=== PATIENT | male | born 1935 | race Caucasian/White ===

== ENCOUNTER → 2016-09-18 | Outpatient (CLI) | payer MEDICARE ==
[2016-09-18 19:19] LABS: ANION GAP 7 MEQ/L (8-16); BLOOD UREA NITROGEN 32 MG/DL (7-18); CALCIUM LEVEL 9.2 MG/DL (8.8-10.2); CARBON DIOXIDE LEVEL 27 MEQ/L (21-32); CHLORIDE LEVEL 106 MEQ/L (98-107); CREATININE FOR GFR 1.45 MG/DL (0.70-1.30); GLOMERULAR FILTRATION RATE 50.1 (>42); GLUCOSE, FASTING 107 MG/DL (83-110); SODIUM LEVEL 140 MEQ/L (136-145)
[2016-09-18 19:25] LABS: MEAN CORPUSCULAR HEMOGLOBIN 30.6 pg (27.0-33.0); MEAN CORPUSCULAR HGB CONC 33.3 g/dl (32.0-36.5); MEAN CORPUSCULAR VOLUME 91.9 fl (80.0-96.0); RED CELL DISTRIBUTION WIDTH 12.5 % (11.5-14.5); WHITE BLOOD COUNT 7.1 K/mm3 (4.0-10.0)
[2016-09-18 19:32] LABS: POTASSIUM SERUM 5.6 MEQ/L (3.5-5.1)
== END ==
LOC: M SMT 14:13
PROVIDERS: ATTEND Nurse Practitioner Women's Health
DX: Z08 Encounter for follow-up examination after completed treatment for malignant neoplasm (principal); Z85.46 Personal history of malignant neoplasm of prostate; Z85.51 Personal history of malignant neoplasm of bladder

== ENCOUNTER → 2016-09-26 | Outpatient (CLI) | payer MEDICARE, BC ==
--- NOTE | 2016-09-26 17:30 | REP ---
MR THORACIC SPINE WITHOUT CONTRAST: HISTORY: Radiculopathy. A small central disc protrusion is present at the T7-8 level. There is minimal effacement of the thecal sac without spinal cord compression. The T7 neural foramina are patent. There is no other disc bulge or herniation. The remaining neural foramina are patent. The spinal cord is normal in signal intensity. Normal signal intensity is present in the thoracic vertebral bodies. Anterior osteophytes are present in the mid and lower thoracic spine. IMPRESSION: Small disc protrusion at the T7-8 level without spinal cord compression. Unreviewed
--- NOTE | 2016-09-26 17:36 | REP ---
MRI CERVICAL SPINE WITHOUT CONTRAST: HISTORY: Radiculopathy. A disc bulge is present at the C2-3 level. There is minimal effacement of the thecal sac without spinal cord compression. The C2 neural foramina are patent. A disc bulge is present at the C3-4 level. There is mild effacement of the thecal sac without spinal cord compression. Bilateral uncinate process hypertrophy is present. This produces mild and moderate narrowing of the right and left C3 neural foramina respectively. A disc bulge with associated osteophyte formation is present at the C4-5 level. There is moderate effacement of the thecal sac without spinal cord compression. Bilateral uncinate process and left facet hypertrophy are present. These findings produce moderate narrowing of the C4 neural foramina. A disc bulge with associated osteophyte formation is present at the C5-6 level. There is minimal spinal cord compression. Bilateral uncinate process hypertrophy is present. This produces moderate narrowing of the C5 neural foramina. A disc bulge with associated osteophyte formation is present at the C6-7 level. There is mild effacement of the thecal sac without spinal cord compression. Bilateral uncinate process hypertrophy is present. This produces moderate and mild narrowing of the right and left C6 neural foramina respectively. There is no other disc bulge or herniation. The remaining neural foramina are patent. The spinal cord is normal in signal intensity. The C4-5 through C6-7 intervertebral discs are decreased in height consistent with disc degeneration. Normal signal intensity is present in the cervical vertebral bodies. IMPRESSION: There is cervical spondylosis at the C2-3 through C6-7 levels most significant at the C5-6 level where there is minimal spinal cord compression. Unreviewed
--- NOTE | 2016-09-26 17:54 | REP ---
MR LUMBAR SPINE WITHOUT CONTRAST: HISTORY: Radiculopathy. COMPARISON: 09/08/2008. Decreased signal intensity on T2-weighted images is present in the lumbar intervertebral discs. The discs are decreased in height. These findings are consistent with disc degeneration. There is no disc bulge or herniation at the L1-2 and L2-3 levels. There is hypertrophy of the posterior articulating facets at the L2-3 level. The nerves exit the neural foramina without compression. A diffuse disc bulge is present at the L2-3 level. There is an increase in the amount of epidural fat. There is hypertrophy of the ligamenta flava and posterior articulating facets. These findings produce mild central canal stenosis. The L3 nerves exit the neural foramina without compression. A diffuse disc bulge is present at the L4-5 level. There is an increase in the amount of epidural fat. There is hypertrophy of the ligamenta flava and posterior articulating facets. These findings produce moderate central canal stenosis. The L4 nerves exit the neural foramina without compression. A diffuse disc bulge is present at the L5-S1 level. There is an increase in the amount of epidural fat. There is mild compression of the thecal sac and S1 nerves. There is hypertrophy of the posterior articulating facets. The L5 nerves exit the neural foramina without compression. The conus medullaris is normal in appearance terminating at the level of the T12-L1 intervertebral disc. Normal signal intensity is present in the lumbar vertebral bodies. IMPRESSION: 1. Mild central canal stenosis at the L3-4 level secondary to disc bulge, ligamentous and facet hypertrophy and epidural lipomatosis. 2. Moderate central canal stenosis at the L4-5 level secondary to disc bulge, ligamentous and facet hypertrophy and epidural lipomatosis. 3. Diffuse disc bulge at the L5-S1 level. There is epidural lipomatosis. There is mild compression of the thecal sac and S1 nerves. The canal stenosis is a new finding at the L3-4 level. The canal stenosis has progressed at the L4-5 level. The epidural lipomatosis is a new finding. Unreviewed
== END ==
LOC: M RAD 14:11
PROVIDERS: ATTEND Pain Medicine Interventional Pain Medicine
DX: M51.24 Other intervertebral disc displacement, thoracic region (principal); M43.02 Spondylolysis, cervical region; M51.26 Other intervertebral disc displacement, lumbar region; M48.03 Spinal stenosis, cervicothoracic region; M54.2 Cervicalgia

== ENCOUNTER → 2016-10-02 | Outpatient (CLI) | payer MEDICARE, BC ==
[2016-10-02 17:25] LABS: CREATININE FOR GFR 1.38 MG/DL (0.70-1.30); GLOMERULAR FILTRATION RATE 52.9 (>42)
== END ==
LOC: M LAB 15:40
PROVIDERS: ATTEND Surgery
DX: N28.9 Disorder of kidney and ureter, unspecified (principal)

== ENCOUNTER → 2016-10-06 | Outpatient (CLI) | payer MEDICARE, BC ==
[~2016-10-06] MED LIST: GASTROGRAFIN SOLUTION 30ML (Q9963) As Ordered ONE; ISOVUE-370 76% 100ML VIAL (Q9967) As Ordered ONE
--- NOTE | 2016-10-06 17:03 | REP ---
CT abdomen pelvis multiphasic scanning: Scanning is initially performed without IV contrast through the liver. This is followed by contrast enhanced arterial phase scanning through the liver and is through the symphysis pubis. This is followed by delayed equilibrium phase scanning through the liver. There are no comparison studies. The visualized lung keating are unremarkable. The hepatic parenchyma is homogeneous on all phases of the study. The gallbladder, pancreas and spleen are unremarkable on all phases of the study. The adrenals, kidneys and abdominal aorta are unremarkable on all phases of the study. There is no hydronephrosis. The abdominal aorta is unremarkable. There is no periaortic adenopathy. There is no mesenteric adenopathy. There is no ascites. There is a right lower quadrant colostomy, however, the colon otherwise appears to be intact. There are scattered diverticula throughout the entire colon, however there is no CT evidence of diverticulitis. Pelvis: There is a large right inguinal hernia containing multiple loops of small bowel. There is no bowel obstruction or strangulation. There is no pelvic adenopathy or ascites. There is an object applied to the scan over the surface of the hernia uncertain significance. There are two small densities posteriorly in the right iliac wing, adjacent to the sacroiliac articulation, bone islands versus blastic metastases. No other lytic, blastic or destructive skeletal changes are identified. Impression: No adenopathy or mass. No ascites. Right lower quadrant stoma, likely a colostomy, however the remainder of the colon is intact. Large right inguinal hernia containing multiple bowel loops. There is an object applied to the scan over the hernia of uncertain significance. Two small densities posteriorly in the right iliac wing, bone islands versus blastic metastases. Signed by Nelson Jensen MD 10/06/2016 04:54 P
== END ==
LOC: EDBD → M RAD 14:13 → EDUNIT# 16:30 → MERGE 16:30
PROVIDERS: ATTEND Nurse Practitioner Women's Health
DX: Z08 Encounter for follow-up examination after completed treatment for malignant neoplasm (principal); Z85.51 Personal history of malignant neoplasm of bladder; Z85.46 Personal history of malignant neoplasm of prostate
CPT/HCPCS: 74178; Q9963; Q9967

== ENCOUNTER → 2016-10-22 | Outpatient (CLI) | payer MEDICARE, BC ==
--- NOTE | 2016-10-22 14:48 | REP ---
REASON: History of prostate cancer. COMPARISON: None. Prior CT examination of the abdomen and pelvis obtained 10/06/2016 showed two small focal areas of increased bony density in the right ileum. After the intravenous administration of 21.3 millicuries of technetium 99m MDP a total body bone scan was obtained. Degenerative type uptake is seen in the feet, shoulders, sternoclavicular joints, cervical spine, and minimally in the hips. No abnormal focal areas of increased radionuclide accumulation are present that would be considered consistent with metastatic lesions. IMPRESSION: No scintigraphic evidence of metastatic disease with degenerative type uptake as described above. Signed by Ortega Mccormack DO 10/22/2016 02:59 P
== END ==
LOC: M RAD 09:36
PROVIDERS: ATTEND Urology
DX: Z85.46 Personal history of malignant neoplasm of prostate (principal); Z08 Encounter for follow-up examination after completed treatment for malignant neoplasm
CPT/HCPCS: 78306; A9503

== ENCOUNTER → 2018-08-09 | Outpatient (REF) | payer MEDICARE, BC | LOC: M SMT 17:02 | PROVIDERS: ATTEND Urology | DX: Z85.51 Personal history of malignant neoplasm of bladder (principal) | CPT/HCPCS: 88108; G0463 ==

== ENCOUNTER 2020-06-05 13:42 | Inpatient (IN) | payer MEDICARE, BC ==
[~2020-06-05] VITALS: Ht 185.4 cm; Wt 83.1 kg
[2020-06-05 16:05] VITALS: BP 163/76
[2020-06-05] MEDS ORDERED: MAALOX 30 ML SUSP *UDC PO PRN (18:15)
[2020-06-05] MEDS ORDERED: ACETAMINOPHEN TAB 650MG DOSE (2X325MG) PO PRN (18:15)
[2020-06-05] MEDS ORDERED: MOM 30ML SUSPENSION UDC PO PRN (18:15)
--- NOTE | 2020-06-05 18:17 | HPEPDOC ---
[facility] Medical History & Physical Date of Admission Jun 05, 2020 Date of Service: Jun 05, 2020 History and Physical CHIEF COMPLAINT: Abdominal pain HISTORY OF PRESENT ILLNESS: 83M PMHx CAD, CVA, HTN, and bladder cancer s/p open radical cystoprostatectomy in 2011 was transferred from [facility] to [facility] due to abdominal pain and decreased urine output through stoma. Patient as found to have urinary retention due to narrowed stoma lumen opening, with releif of his abdominal pain with urine catheterization. Patient was found to have a dirty UA in [facility] s/p [address] abdomen showed bilateral hydronephrosis and a full stoma however creatinine was at baseline. Patient was transferred to [facility] for evaluation by urology. Patient will be admitted to hospital service for management of chronic medical problems with neurology consulted for management of stoma malfunction. Patient tells me that he is feeling a little better since being in the hospital as the catheterizations relieve his abdominal pain. Denies any chest pain or shortness of breath. PAST MEDICAL HISTORY: CVA CAD Bladder cancer 2000 Hypertension Osteoarthritis Lumbar spinal stenosis Hyperlipidemia Shingles 2010 GERD Prostate cancer Hypothyroidism Gout COPD Cardiac arrest 2019 with ROSC PAST SURGICAL HISTORY: 2X inguinal hernia repair Open-heart surgery 2000 Bilateral stent placement legs Tonsillectomy Appendectomy Bladder cancer s/p Radical cystoprostatectomy and ileal conduit in 2011 SOCIAL HISTORY: Endorses drinking alcohol socially but not lately Quit smoking over 20 years ago Denies illicit drug use FAMILY HISTORY: Reviewed and noncontributory ALLERGIES: Please see below. REVIEW OF SYSTEMS: 10 point review of systems complete all negative otherwise stated in HPI HOME MEDICATIONS: Please see below. PHYSICAL EXAMINATION: Constitutional: Awake and alert, in no apparent distress ENT: Sclera are clear. Mucosa is moist. Respiratory: Lungs CTA bilaterally. No respiratory distress. No use of accessory muscles. Cardiovascular: RRR S1 and S2 are normal, no murmur Gastrointestinal: Abdomen is soft, non distended, non tender except around stoma site, BS present. Genitourinary: Stoma with bag in place outputting small amount of blood-tinged urine. There is some mild tenderness to palpation over the stromal sites but no other abdominal pain. Musculoskeletal: No LE edema. Neurologic: No focal neurological deficit. Mental Status: A&O x3, normal affect Skin: Warm, dry LABORATORY DATA: See below. IMAGING: CT abdomen from [facility] to be uploaded to [employer] MICROBIOLOGY: Please see below. ASSESSMENT/PLAN 83M PMHx CAD, CVA, HTN, and bladder cancer s/p open radical cystoprostatectomy in 2011 was transferred from [facility] to [facility] due to abdominal pain and decreased urine output through stoma. Patient as found to have urinary retention due to narrowed stoma lumen opening, with releif of his abdominal pain with urine catheterization. Patient was found to have a dirty UA in [facility] s/p [address] abdomen showed bilateral hydronephrosis and a full stoma however creatinine was at baseline. Patient was transferred to [facility] for evaluation by urology. 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 Olivarez who placed a vazquez catheter into the stoma for drainage. Urology recommending continue catheter drainage and they will decide stomal dilation vs revision. Morphine PRN pain. # Bilateral hydronephrosis: Repeat ultrasound. Should improve with continued urine drainage. Creatinine at baseline # Suspect UTI: UA here not convincing of UTI, however UA at [facility] done prior to administration of Levofloxacin suggestive of UA. Will treat of obtain UCx. # Hypertension: Continue home meds. Monitor and titrate # Hypothyroidism: resume Synthroid. # COPD: not in exacerbation. Continue home inhalers PRN. # Gout: Continue home meds # CVA/CAD: ASA, statin, home meds. # PAD: continue home meds and duel antiplatelet therapy # GERD: protonix # MDD: lexapro # DVT prophylaxis: Heparin Goals of care: Goals of care discussion with Mr. Yanez. He reinstated his prior wishes for DNR/DNI. He states he hasn't completed MOLST form at home. Completed new MOLST with patient at bedside. A [facility] Hospitalist Vital Signs Vital Signs Date Time Temp Pulse Resp B/P (MAP) Pulse Ox O2 Delivery O2 Flow Rate FiO2 06/05/20 16:05 97.5 79 20 163/76 (105) 96 Home Medications Scheduled Allopurinol (Allopurinol) 100 Mg Tablet, 200 MG PO DAILY Amlodipine Besylate (Amlodipine Besylate) 5 Mg Tablet, 5 MG PO DAILY Aspirin (Aspirin EC) 81 Mg Tablet.dr, 81 MG PO DAILY Calcium Carbonate (Calcium Carbonate) 500 Mg Tablet, 500 MG PO QID Carboxymethylcellulose Sodium (Refresh Tears) 15 Ml Drops, 1 DROP OU TID Cholecalciferol (Vitamin D3) (Vitamin D3) 1,000 Unit Tablet, 1,000 UNITS PO DAILY Clopidogrel Bisulfate (Clopidogrel) 75 Mg Tablet, 75 MG PO DAILY Cyanocobalamin (Vitamin B-12) (Vitamin B-12) 1,000 Mcg Tablet, 1,000 MCG PO DAILY Doxepin HCl (Doxepin HCl) 10 Mg Capsule, 10 MG PO QHS Escitalopram Oxalate (Escitalopram Oxalate) 20 Mg Tablet, 20 MG PO DAILY Ferrous Gluconate (Ferrous Gluconate) 324 Mg Tablet, 324 MG PO DAILY L.acidoph/L.bulg/B.bif/S.therm (Bacid Caplet) 1 Each Tablet, 1 TAB PO DAILY Levocetirizine Dihydrochloride (Levocetirizine Dihydrochloride) 5 Mg Tablet, 5 MG PO QHS Levothyroxine Sodium (Levothyroxine Sodium) 25 Mcg Tablet, 25 MCG PO QAM Pantoprazole Sodium (Pantoprazole Sodium) 40 Mg Tablet.dr, 40 MG PO DAILY Quetiapine Fumarate (Quetiapine Fumarate) 25 Mg Tablet, 25 MG PO QHS Ropinirole HCl (Ropinirole HCl) 2 Mg Tablet, 2 MG PO BID TAKES AT 1430/2000 Rosuvastatin Calcium (Rosuvastatin Calcium) 20 Mg Tablet, 20 MG PO QHS Sucralfate (Sucralfate) 1 Gm Tablet, 1 GM PO ACHS Trazodone HCl (Trazodone HCl) 50 Mg Tablet, 50 MG PO QHS Scheduled PRN Acetaminophen (Acetaminophen) 325 Mg Tablet, 650 MG PO Q6H PRN for PAIN Albuterol Sulf (Albuterol Sulfate) 2.5 Mg/3 Ml Vial.neb, 2.5 MG INH Q6H PRN for SHORTNESS OF BREATH Colestipol HCl (Colestipol HCl) 500 Gm Granules, 1 SCOOP PO BID PRN for DIARRHEA Dicyclomine HCl (Dicyclomine HCl) 10 Mg Capsule, 10 MG PO BID PRN for BOWEL CRAMPING Epoetin Ramesh-Epbx (Retacrit) 10,000 Unit/1 Ml Vial, 20,000 UNIT INJ QWEEK PRN for ANEMIA Fluticasone Propionate (Flonase Allergy Relief) 9.9 Ml Lyman.susp, 1 SPRAY NARES DAILY PRN for CONGESTION Allergies Coded Allergies: No Known Allergies (Verified Allergy, Unknown, 06/05/20) A-FIB/CHADSVASC A-FIB History Current/History of A-Fib/PAF?: No YOUSEFEMILY MD Jun 05, 2020 18:17
--- NOTE | 2020-06-05 18:26 | CR.PDOC ---
General Date of Consultation: Jun 05, 2020 Consultation REASON FOR CONSULTATION/CHIEF COMPLAINT: Ileal Conduit with stomal obstruction HISTORY OF PRESENT ILLNESS: Patient is an 83-year-old gentleman with a history of bladder cancer status post an open radical cystoprostatectomy in 2011. He noticed that his stoma has not been emptying very well and she was having significant abdominal pain so he went to [facility]. The pain started the day before last and was associated with nausea and vomitting. He is moving his bowels normally.They noticed that the stoma was not draining well and was very encrusted. They then had to straight catheterize his stoma and they got out 300 mL of urine. A CT scan of the abdomen and pelvis showed moderate to severe bilateral hydronephrosis with a full stoma and stomal obstruction. ALLERGIES: Please see below. HOME MEDICATIONS: Please see below. PAST MEDICAL HISTORY: -Bladder cancer -History of a CVA -Coronary artery disease -High blood pressure -Osteoarthritis -Lumbar spinal stenosis -Hyperlipidemia -GERD PAST SURGICAL HISTORY: -Radical cystoprostatectomy and ileal conduit in 2011 -Appendectomy -Cataract surgery -Bronchoscopy -Colonoscopies and endoscopies -Bilateral inguinal hernia repair 2 in the right recently with mesh -Open heart surgery in 2000 -Stents in his legs -Tonsillectomy FAMILY HISTORY: Father: Mother: No family history of urologic diseases SOCIAL HISTORY: Marital status and/or living arrangements: Employment: Retired Tobacco use: Former smoker ETOH: Occasional amount REVIEW OF SYSTEMS: 12 System review done. See HPI. PHYSICAL EXAMINATION: VITAL SIGNS: Please see below. GENERAL APPEARANCE: Well-developed well-nourished gentleman HEENT: Normocephalic atraumatic. JOVANI RESPIRATORY: Regular CARDIOVASCULAR: Clear ABDOMEN: Some tenderness around the stoma especially on the right hand side but no rebound or guarding. Stoma has a smaller opening then normally EXTREMITIES: No cyanosis clubbing or edema NEUROLOGICAL: Nonfocal PSYCHIATRIC: Alert and oriented 3 LABORATORY DATA: Please see below. Awad catheter placement: The stoma was cleaned with Betadine and an 18 Afghan Awad catheter was placed without difficulty. 10 mL was placed in the balloon. Urine output in the stoma was approximated 200 mL and this helped the pressure he was feeling in his abdomen. ASSESSMENT -Ileal conduit with a stomal stricture now with an 18 Afghan Awad catheter draining well the patient came in with obstruction of his urine and diffuse abdominal pain -Bilateral hydronephrosis but with a baseline creatinine of 1.9 -Urinalysis shows no evidence of infection Plan -Continue Awad catheter drainage for now and plan Stomal Dilation possibly at bedside and if doesn't work may need Stomal Revision in the future -Renal ultrasound in the morning to make sure hydronephrosis has resolved Vital Signs/I&O Vital Signs Date Time Temp Pulse Resp B/P (MAP) Pulse Ox O2 Delivery O2 Flow Rate FiO2 06/05/20 16:05 97.5 79 20 163/76 (105) 96 Allergies Coded Allergies: No Known Allergies (Verified Allergy, Unknown, 06/05/20) Home Medications Scheduled Allopurinol (Allopurinol) 100 Mg Tablet, 200 MG PO DAILY, (Reported) Amlodipine Besylate (Amlodipine Besylate) 5 Mg Tablet, 5 MG PO DAILY, (Reported) Aspirin (Aspirin EC) 81 Mg Tablet.dr, 81 MG PO DAILY, (Reported) Calcium Carbonate (Calcium Carbonate) 500 Mg Tablet, 500 MG PO QID, (Reported) Carboxymethylcellulose Sodium (Refresh Tears) 15 Ml Drops, 1 DROP OU TID, (Reported) Cholecalciferol (Vitamin D3) (Vitamin D3) 1,000 Unit Tablet, 1,000 UNITS PO DAILY, (Reported) Clopidogrel Bisulfate (Clopidogrel) 75 Mg Tablet, 75 MG PO DAILY, (Reported) Cyanocobalamin (Vitamin B-12) (Vitamin B-12) 1,000 Mcg Tablet, 1,000 MCG PO DAILY, (Reported) Doxepin HCl (Doxepin HCl) 10 Mg Capsule, 10 MG PO QHS, (Reported) Escitalopram Oxalate (Escitalopram Oxalate) 20 Mg Tablet, 20 MG PO DAILY, (Reported) Ferrous Gluconate (Ferrous Gluconate) 324 Mg Tablet, 324 MG PO DAILY, (Reported) L.acidoph/L.bulg/B.bif/S.therm (Bacid Caplet) 1 Each Tablet, 1 TAB PO DAILY, (Reported) Levocetirizine Dihydrochloride (Levocetirizine Dihydrochloride) 5 Mg Tablet, 5 MG PO QHS, (Reported) Levothyroxine Sodium (Levothyroxine Sodium) 25 Mcg Tablet, 25 MCG PO QAM, (Reported) Pantoprazole Sodium (Pantoprazole Sodium) 40 Mg Tablet.dr, 40 MG PO DAILY, (Reported) Quetiapine Fumarate (Quetiapine Fumarate) 25 Mg Tablet, 25 MG PO QHS, (Reported) Ropinirole HCl (Ropinirole HCl) 2 Mg Tablet, 2 MG PO BID, (Reported) TAKES AT 1430/2000 Rosuvastatin Calcium (Rosuvastatin Calcium) 20 Mg Tablet, 20 MG PO QHS, (Reported) Sucralfate (Sucralfate) 1 Gm Tablet, 1 GM PO ACHS, (Reported) Trazodone HCl (Trazodone HCl) 50 Mg Tablet, 50 MG PO QHS, (Reported) Scheduled PRN Acetaminophen (Acetaminophen) 325 Mg Tablet, 650 MG PO Q6H PRN for PAIN, (Reported) Albuterol Sulf (Albuterol Sulfate) 2.5 Mg/3 Ml Vial.neb, 2.5 MG INH Q6H PRN for SHORTNESS OF BREATH, (Reported) Colestipol HCl (Colestipol HCl) 500 Gm Granules, 1 SCOOP PO BID PRN for DIARRHEA, (Reported) Dicyclomine HCl (Dicyclomine HCl) 10 Mg Capsule, 10 MG PO BID PRN for BOWEL CRAMPING, (Reported) Epoetin Ramesh-Epbx (Retacrit) 10,000 Unit/1 Ml Vial, 20,000 UNIT INJ QWEEK PRN for ANEMIA, (Reported) Fluticasone Propionate (Flonase Allergy Relief) 9.9 Ml Bonneau.susp, 1 SPRAY NARES DAILY PRN for CONGESTION, (Reported) THUY MARCELO MD Jun 05, 2020 18:26
[2020-06-05] MEDS ORDERED: ASPI81TA26 PO (18:29)
[2020-06-05] MEDS ORDERED: CYAN100050 PO (18:29)
[2020-06-05] MEDS ORDERED: CLOP75TA2 PO (18:29)
[2020-06-05] MEDS ORDERED: ROPI2TAB3 PO (18:29)
[2020-06-05] MEDS ORDERED: ROSU20TA5 PO (18:29)
[2020-06-05] MEDS ORDERED: DOXE10CA PO (18:29)
[2020-06-05] MEDS ORDERED: RETA1000 INJ (18:29)
[2020-06-05] MEDS ORDERED: FERR32TA PO (18:29)
[2020-06-05] MEDS ORDERED: REFR0.5D8 OU (18:29)
[2020-06-05] MEDS ORDERED: ALBU83IN INH (18:29)
[2020-06-05] MEDS ORDERED: FLON1SPR NARES (18:29)
[2020-06-05] MEDS ORDERED: PANT40TA29 PO (18:29)
[2020-06-05] MEDS ORDERED: TRAZ-186 PO (18:29)
[2020-06-05] MEDS ORDERED: ACET-838 PO (18:29)
[2020-06-05] MEDS ORDERED: LEVO25TA5 PO (18:29)
[2020-06-05] MEDS ORDERED: D31000TA2 PO (18:29)
[2020-06-05] MEDS ORDERED: SUCR1TA PO (18:29)
[2020-06-05] MEDS ORDERED: DICY10CA13 PO (18:29)
[2020-06-05] MEDS ORDERED: QUET1TAB7 PO (18:29)
[2020-06-05] MEDS ORDERED: LEVOTAB10 PO (18:29)
[2020-06-05] MEDS ORDERED: AMLO1TAB24 PO (18:29)
[2020-06-05] MEDS ORDERED: CALC500T61 PO (18:29)
[2020-06-05] MEDS ORDERED: ESCI20TA16 PO (18:29)
[2020-06-05] MEDS ORDERED: ALLO100T PO (18:29)
[2020-06-05] MEDS ORDERED: BACITAB PO (18:29)
[2020-06-05] MEDS ORDERED: COLE5GRA PO (18:29)
[2020-06-05 18:40] LABS: HEMATOCRIT 31.9 % (42.0-52.0); HEMOGLOBIN 9.8 g/dl (13.5-17.5); MEAN CORPUSCULAR HEMOGLOBIN 29.5 pg (27.0-33.0); MEAN CORPUSCULAR HGB CONC 30.7 g/dl (32.0-36.5); MEAN CORPUSCULAR VOLUME 96.1 fl (80.0-96.0); PLATELET COUNT, AUTOMATED 176 10^3/uL (150-450); RED BLOOD COUNT 3.32 10^6/uL (4.30-6.10); WHITE BLOOD COUNT 9.9 10^3/uL (4.0-10.0)
[2020-06-05 18:55] LABS: CALCIUM LEVEL 8.9 MG/DL (8.8-10.2); CREATININE FOR GFR 1.98 MG/DL (0.70-1.30); GLOMERULAR FILTRATION RATE 34.6 (>35); POTASSIUM SERUM 5.3 MEQ/L (3.5-5.1)
[2020-06-05] MEDS ORDERED: DICYCLOMINE 10 MG CAP PO PRN (19:00)
[2020-06-05] MEDS ORDERED: ALBUTEROL SULFATE 2.5 MG/0.5 ML INH NEB SOLN INH PRN (19:00)
[2020-06-05] MEDS: OYSTER SHELL CALCIUM 500 MG TAB PO SCH (20:43)
[2020-06-05] MEDS: SUCRALFATE 1 GM TAB PO SCH (20:43)
[2020-06-05] MEDS: DOXEPIN 10 MG CAP PO SCH (20:43)
[2020-06-05] MEDS: traZODone 50 MG TAB PO SCH (20:43)
[2020-06-05] MEDS: rOPINIRole 2MG TAB PO SCH (20:44)
[2020-06-05] MEDS: ROSUVASTATIN 10 MG TAB (CRESTOR) PO SCH (20:44)
[2020-06-05] MEDS: HEPARIN SOD (PORCINE) 5000UNITS/ML 1ML VIAL/SYRINGE SC SCH (20:44)
[2020-06-05] MEDS: DOCUSATE SODIUM 100MG CAPSULE PO SCH (20:44)
[2020-06-05] MEDS: QUEtiapine FUMARATE 25 MG TAB PO SCH (20:44)
[2020-06-05] MEDS: cefTRIAXone SOD 1 GM in D5W MINI-BAG PLUS 50 ML IV SCH (20:45)
[2020-06-05] MEDS: MORPHINE 2 MG/ML 1ML VIAL (J2270) IV PRN (20:58)
[2020-06-05 22:00] VITALS: BP 129/80
[2020-06-06] MEDS: LEVOTHYROXINE 25MCG TABLET (0.025MG) PO SCH (05:14)
[2020-06-06] MEDS: HEPARIN SOD (PORCINE) 5000UNITS/ML 1ML VIAL/SYRINGE SC SCH ×3 (05:15→21:04)
[2020-06-06] MEDS: MORPHINE 2 MG/ML 1ML VIAL (J2270) IV PRN ×3 (05:41→22:36)
[2020-06-06 06:00] VITALS: BP 128/80
[2020-06-06 06:19] LABS: HEMATOCRIT 30.6 % (42.0-52.0); HEMOGLOBIN 9.7 g/dl (13.5-17.5); MEAN CORPUSCULAR HEMOGLOBIN 30.9 pg (27.0-33.0); MEAN CORPUSCULAR HGB CONC 31.7 g/dl (32.0-36.5); MEAN CORPUSCULAR VOLUME 97.5 fl (80.0-96.0); PLATELET COUNT, AUTOMATED 164 10^3/uL (150-450); RED BLOOD COUNT 3.14 10^6/uL (4.30-6.10); WHITE BLOOD COUNT 7.8 10^3/uL (4.0-10.0)
[2020-06-06 06:46] LABS: CALCIUM LEVEL 8.7 MG/DL (8.8-10.2); CREATININE FOR GFR 2.35 MG/DL (0.70-1.30); GLOMERULAR FILTRATION RATE 28.4 (>35); MAGNESIUM LEVEL 1.6 MG/DL (1.8-2.4); POTASSIUM SERUM 5.4 MEQ/L (3.5-5.1)
--- NOTE | 2020-06-06 08:02 | IPNPDOC ---
Text Note Date of Service The patient was seen on 06/06/20. NOTE Subjective: Patient seated examined at bedside this morning. This is feeling about the same as yesterday he is currently nothing by mouth for procedure with urology this morning. He endorses still having some pain around the stoma site. Denies any chest pain or shortness of breath. Nurse reports no acute overnight events. Objective: Constitutional: Awake and alert, in no apparent distress ENT: Sclera are clear. Mucosa is moist. Respiratory: Lungs CTA bilaterally. No respiratory distress. No use of accessory muscles. Cardiovascular: RRR S1 and S2 are normal, no murmur Gastrointestinal: Abdomen is soft, non distended, non tender except around stoma site, BS present. Genitourinary: Stoma with bag in place with Vazquez catheter inserted through stoma with about 250 mL urine in bag yellow today no blood. There is some mild tenderness to palpation over the stromal sites but no other abdominal pain. Musculoskeletal: No LE edema. Neurologic: No focal neurological deficit. Mental Status: A&O x3, normal affect Skin: Warm, dry Assessment/plan: 83M PMHx CAD, CVA, HTN, and bladder cancer s/p open radical cystoprostatectomy in 2011 was transferred from [facility] to [facility] due to abdominal pain and decreased urine output through stoma. Patient as found to have urinary retention due to narrowed stoma lumen opening, with releif of his abdominal pain with urine catheterization. Patient was found to have a dirty UA in [facility] s/p [address] abdomen showed bilateral hydronephrosis and a full stoma however creatinine was at baseline. Patient was transferred to [facility] for evaluation by urology. 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 Olivarez who placed a vazquez catheter into the stoma for drainage. Urology recommending continue catheter drainage and they will decide stomal dilation vs revision possibly this morning. Morphine PRN pain. # Bilateral hydronephrosis: Should improve with continued urine drainage or surgical correction. Creatinine increased today. US 06/06/2020 showing no right hydronephrosis and mild left hydronephrosis. # Suspect UTI: UA here not convincing of UTI, however UA at [facility] done prior to administration of Levofloxacin suggestive of UA. Will treat of obtain UCx. # Hypertension: Continue home meds. Monitor and titrate # Hypothyroidism: resume Synthroid. # COPD: not in exacerbation. Continue home inhalers PRN. # Gout: Continue home meds # CVA/CAD: ASA, statin, home meds. # PAD: continue home meds and duel antiplatelet therapy # GERD: protonix # MDD: lexapro # DVT prophylaxis: Heparin Goals of care: Goals of care discussion with Mr. Yanez. He reinstated his prior wishes for DNR/DNI. He states he hasn't completed MOLST form at home. Completed new MOLST with patient at bedside. A [facility] Hospitalist Lissette LYLES I+O Lissette LYLES I+O Laboratory Tests 06/05/20 18:25 06/06/20 05:54 Vital Signs Date Time Temp Pulse Resp B/P (MAP) Pulse Ox O2 Delivery O2 Flow Rate FiO2 06/06/20 06:00 99.1 86 18 128/80 (96) 94 Room Air I&O- Last 24 Hours up to 6 AM 06/06/20 06:00 Intake Total 290 ml Output Total 425 ml Balance -135 ml EMILY MCINTYRE MD Jun 06, 2020 08:02
[2020-06-06] MEDS: MAG SULF 1GM/100ML (MAG RUN) 1 GM in IV 1 EA IV SCH ×2 (08:25→10:02)
[2020-06-06] MEDS: CLOPIDOGREL 75 MG TAB PO SCH ×2 (08:25→11:07)
[2020-06-06] MEDS: ASPIRIN 81 MG ENTERIC TAB PO SCH ×2 (08:25→11:07)
[2020-06-06] MEDS: SUCRALFATE 1 GM TAB PO SCH ×4 (08:25→21:04)
[2020-06-06] MEDS: DOCUSATE SODIUM 100MG CAPSULE PO SCH ×2 (08:26→21:00)
[2020-06-06] MEDS: OYSTER SHELL CALCIUM 500 MG TAB PO SCH ×4 (08:26→21:04)
--- NOTE | 2020-06-06 08:29 | ECGEPIP ---
[facility] Test Date: 2020-06-06 Pat Name: THU THAO Department: Room: Y0459-97 Gender: Male Corporate Accounting Manager: VELASQUEZ : [id number] Requested By: EMILY Barnard Order Number: [id number] Reading MD: Ryan Toure Measurements Intervals [place] Rate: 61 P: 77 VT: 210 QRS: -7 QRSD: 107 T: 50 QT: 404 QTc: 408 Interpretive Statements Normal sinus rhythm LA conduction disturbance? First-degree AV block. Left axis deviation Low voltages with slow precordial R wave progression and persistent S waves V5 a and V6; body habitus versus pulmonary disease No prior tracing for comparison Electronically Signed on 06-06-2020 8:29:16 EST by Ryan Toure
[2020-06-06] MEDS ORDERED: allopurinoL 100 MG TAB PO SCH (09:00)
[2020-06-06] MEDS ORDERED: FERROUS GLUCONATE 324 MG TAB PO SCH (09:00)
[2020-06-06] MEDS ORDERED: SOD POLYSTYRENE SULFONATE SUSP 15 GM/60 ML UD PO ONE ×2 (09:00→17:30)
[2020-06-06] MEDS ORDERED: amLODIPine 5 MG TAB PO SCH (09:00)
[2020-06-06] MEDS ORDERED: ESCITALOPRAM OXALATE 10 MG TAB (LEXAPRO) PO SCH (09:00)
[2020-06-06] MEDS ORDERED: PANTOPRAZOLE 40MG TAB (PROTONIX) PO SCH (09:00)
--- NOTE | 2020-06-06 10:17 | REP ---
INDICATION: Hydronephrosis. COMPARISON: Outside abdomen and pelvis CT dated 06/05/2020 TECHNIQUE: Renal real-time and color Doppler ultrasound FINDINGS: Patient is a history of cystectomy and ileal conduit in 2011. Patient states that the conduit was obstructed and he was just catheterized for drainage. The right kidney measures 10.8 x 4.8 x 5.1 cm. The left kidney measures 9.6 x 4.4 x 4.9 cm. The left kidney is in the low normal size range. There is no hydronephrosis on the right. There is mild hydronephrosis on the left. The right renal pelvis is mildly distended, however the calices are not distended. No renal calculi are identified. There are no solid or cystic renal masses. IMPRESSION: Cystectomy and ileal conduit. No right hydronephrosis. Mild left hydronephrosis. <Electronically signed by Nelson Jensen > 06/06/20 [id number]
[2020-06-06] MEDS ORDERED: MORPHINE 2 MG/ML 1ML VIAL (J2270) IV ONE (11:30)
[2020-06-06] MEDS: rOPINIRole 2MG TAB PO SCH ×2 (13:09→21:14)
[2020-06-06 14:00] VITALS: BP 119/48
--- NOTE | 2020-06-06 14:20 | IPNPDOC ---
Text Note Date of Service The patient was seen on 06/06/20. NOTE Patient was draining urine overnight through the Awad catheter in his stoma without any difficulty. He still was having abdominal pain but not as severe as previously and no nausea or vomiting overnight. A renal ultrasound today showed the [place] to be almost completely resolved still with a little bit of left-sided [place]. It was decided to dilate the stoma at the bedside and informed consent was obtained in both verbal and written form. Physical exam: He did have a MAXIMUM TEMPERATURE of 99.1. His blood pressure was 128/80. His pulse was 86. His lungs are clear bilaterally. There is no use of accessory muscles or respiratory distress. His heart has a regular rate and rhythm. He still has some mild abdominal tenderness but it is nondistended and most of the tenderness is just to the right of the stomal site. The stoma looks pink and normal. The stoma bag is in place with yellow urine. He has no cyanosis clubbing or edema, no focal defects and he is alert and or iented 3. Stomal dilation was done at bedside. The patient was given 2 mg of morphine IV after signing informed consent. We discussed that I would try dilation but that he may still need stomal revision in the future or other dilations to keep his stoma opening. We discussed the risks and benefits of this. He was prepped and draped and the Awad catheter had been removed from the stoma. I then began dilations at an 18 [place]ian and one up to a 30 [place]ian and could feel the area of stenosis. Once I was able to really open this I was finally able to place a 22 [place] Awad catheter. This was draining well. 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 Menendez in case there are any issues but once he is feeling well and draining urine well he should be up to be discharged home from a urologic standpoint -Normal ultrasound this morning only showed some very mild left [place] although h is creatinine is increased so we may want to watch him and check this again tomorrow VS,Nikolaybone, I+O VS, Fishbone, I+O Laboratory Tests 06/05/20 18:25 06/06/20 05:54 Vital Signs Date Time Temp Pulse Resp B/P (MAP) Pulse Ox O2 Delivery O2 Flow Rate FiO2 06/06/20 14:09 18 Room Air 06/06/20 06:00 99.1 86 128/80 (96) 94 I&O- Last 24 Hours up to 6 AM 06/06/20 06:00 Intake Total 290 ml Output Total 425 ml Balance -135 ml THUY MARCELO MD Jun 06, 2020 14:20
[2020-06-06 16:41] LABS: CALCIUM LEVEL 8.2 MG/DL (8.8-10.2); CREATININE FOR GFR 2.48 MG/DL (0.70-1.30); GLOMERULAR FILTRATION RATE 26.7 (>35); MAGNESIUM LEVEL 2.3 MG/DL (1.8-2.4); POTASSIUM SERUM 5.6 MEQ/L (3.5-5.1)
[2020-06-06] MEDS ORDERED: CYSTO-CONRAY II 17.2% 250ML VIAL (Q9958) As Ordered ONE (18:58)
--- NOTE | 2020-06-06 20:50 | REPVR ---
PROCEDURE INFORMATION: Exam: CT Abdomen And Pelvis Without Contrast Exam date and time: 06/06/2020 8:07 PM Age: 84 years old Clinical indication: Other: Urostomy not draining; Prior surgery; Surgery date: 6+ months; Additional info: Urostomy not draining/ Dr. Olivarez will be with PT. TECHNIQUE: Imaging protocol: Computed tomography of the abdomen and pelvis without contrast. Radiation optimization: All CT scans at this facility use at least one of these dose optimization techniques: automated exposure control; mA and/or kV adjustment per patient size (includes targeted exams where dose is matched to clinical indication); or iterative reconstruction. COMPARISON: CT Abd/pel w/o contrast/OUTSIDE PRIOR 06/05/2020 4:28 AM FINDINGS: Liver: Normal. No mass. Gallbladder and bile ducts: There has been prior cholecystectomy. No biliary duct dilation. Pancreas: Normal. No ductal dilation. Spleen: Normal. No splenomegaly. Adrenal glands: Normal. No mass. Kidneys and ureters: Kidneys are mildly atrophic. Mild bilateral hydroureter. No renal masses or calculi. A ureteral conduit is present in the right mid abdomen. Soft tissue edema and stranding is noted around the ureteral conduit. There is a small peristomal hernia containing peritoneal fat, air, and fluid. Small amount of intraperitoneal free fluid is present in the anterior abdomen near the ureteral conduit site. Dilation of the ureteral conduit on the previous exam has decreased. On the delayed images there is a Awad catheter in the ureteral conduit. Awad catheter extends outside of the conduit lumen into the peritoneal space with spillage of contrast into the peritoneal space. Stomach and bowel: There is colonic diverticulosis without evidence of diverticulitis. No bowel obstruction. Appendix: There has been prior appendectomy. Intraperitoneal space: Mild free fluid in the abdomen and pelvis. Vasculature: Unremarkable. No abdominal aortic aneurysm. Lymph nodes: Unremarkable. No enlarged lymph nodes. Urinary bladder: There has been prior cystectomy. Reproductive: Unremarkable as visualized. Reproductive: Unremarkable as visualized. Bones/joints: There are advanced degenerative changes in the spine and pelvis. Severe spinal stenosis at L4-L5. Soft tissues: Unremarkable. IMPRESSION: 1. Perforation of the right lower quadrant ureteral conduit with spillage of fluid and contrast into the peritoneal space. Small associated pneumoperitoneum. 2. Colonic diverticulosis without evidence of diverticulitis. Electronically signed by: Julio Cesar Zuleta On 06/06/2020 20:50:15 PM
[2020-06-06] MEDS: DOXEPIN 10 MG CAP PO SCH (21:04)
[2020-06-06] MEDS: traZODone 50 MG TAB PO SCH (21:04)
[2020-06-06] MEDS: QUEtiapine FUMARATE 25 MG TAB PO SCH (21:04)
[2020-06-06] MEDS: cefTRIAXone SOD 1 GM in D5W MINI-BAG PLUS 50 ML IV SCH (21:05)
[2020-06-06] MEDS: ROSUVASTATIN 10 MG TAB (CRESTOR) PO SCH (21:14)
[2020-06-06 22:00] VITALS: BP 160/78
[2020-06-07] VITALS (11 sets, daily range): BP systolic 96–146; BP diastolic 58–90
[2020-06-07] MEDS ORDERED: SOD POLYSTYRENE SULFONATE SUSP 15 GM/60 ML UD PO ONE (02:00)
[2020-06-07] MEDS: MORPHINE 2 MG/ML 1ML VIAL (J2270) IV PRN ×4 (02:09→18:26)
[2020-06-07] MEDS: HEPARIN SOD (PORCINE) 5000UNITS/ML 1ML VIAL/SYRINGE SC SCH (05:43)
[2020-06-07] MEDS: LEVOTHYROXINE 25MCG TABLET (0.025MG) PO SCH (05:43)
[2020-06-07 08:40] LABS: HEMATOCRIT 29.7 % (42.0-52.0); HEMOGLOBIN 9.1 g/dl (13.5-17.5); MEAN CORPUSCULAR HEMOGLOBIN 29.5 pg (27.0-33.0); MEAN CORPUSCULAR HGB CONC 30.6 g/dl (32.0-36.5); MEAN CORPUSCULAR VOLUME 96.4 fl (80.0-96.0); PLATELET COUNT, AUTOMATED 162 10^3/uL (150-450); RED BLOOD COUNT 3.08 10^6/uL (4.30-6.10); WHITE BLOOD COUNT 8.4 10^3/uL (4.0-10.0)
[2020-06-07 08:51] LABS: INR 1.07; PROTHROMBIN TIME 14.1 SECONDS (12.5-14.3)
[2020-06-07 09:15] LABS: CALCIUM LEVEL 7.8 MG/DL (8.8-10.2); CREATININE FOR GFR 2.35 MG/DL (0.70-1.30); GLOMERULAR FILTRATION RATE 28.4 (>35); POTASSIUM SERUM 3.9 MEQ/L (3.5-5.1)
[2020-06-07] MEDS ORDERED: cefTRIAXone SOD 1 GM in D5W MINI-BAG PLUS 50 ML IV SCH (11:45)
[2020-06-07] MEDS ORDERED: metroNIDAZOLE 500 MG in IV 1 EA IV SCH (12:00)
[2020-06-07] MEDS: rOPINIRole 2MG TAB PO SCH (13:33)
--- NOTE | 2020-06-07 14:26 | IPNPDOC ---
Text Note Date of Service The patient was seen on 06/06/20 NOTE After I dilated the pts stoma and placed a 22 Belarusian catheter he continued to have poor urinary drainage so I went back to hospital to see him. His abdomen was back to severe tenderness. It was decided to do a Stat CT scan and place dye through the catheter to r/o ilial rupture. Unfortunately in CT a Ileal rupture was appreciated. Dr. Balderrama (Interventional Radiology) was not fire protection engineer to place Stat Nephrostomy Tubes. I contacted Dr. Whalen who did the original ileal conduit but he no longer did major operations but said one of his partners could take the pt for transfer. Unfortunately [facility] and [facility] had no beds. I contacted [facility], [facility], [facility] and no one had beds to transfer the pt. I spoke with Dr. Gordon who also tried to find transfer options without any luck. Since Dr. Balderrama was working the next day it was d ecided to put in Stat Nephrostomy tubes when she started working. Awad was left in ileal stoa to see if any urine would drain. At least 3 hrs was spent with greater than 50% of this in face to face with the pt. VS,Fishbone, I+O VS, Fishbone, I+O Laboratory Tests 06/06/20 16:09 06/06/20 23:57 06/07/20 08:24 Vital Signs Date Time Temp Pulse Resp B/P (MAP) Pulse Ox O2 Delivery O2 Flow Rate FiO2 06/07/20 12:39 18 Room Air 06/07/20 10:30 80 126/87 (100) 95 06/07/20 10:00 99.5 I&O- Last 24 Hours up to 6 AM 06/07/20 06:00 Intake Total 1350 ml Output Total 350 ml Balance 1000 ml THUY MARCELO MD Jun 07, 2020 14:26
--- NOTE | 2020-06-07 14:35 | DS.PDOC ---
Discharge Summary General Date of Admission Jun 05, 2020 at 16:03 Date of Discharge 06/07/2020 Discharge Summary PROCEDURES PERFORMED DURING STAY: [None]. ADMITTING DIAGNOSES: 1. Bilateral Hydronephrosis. 2. Urine Stoma stricture/malfunction DISCHARGE DIAGNOSES: Perforation of ileal conduit Bilateral Hydronephrosis. Urine Stoma malfunction COMPLICATIONS/CHIEF COMPLAINT: abdominal pain HISTORY OF PRESENT ILLNESS: From H&P: 83M PMHx CAD, CVA, HTN, and bladder cancer s/p open radical cystoprostatectomy in 2011 was transferred from [facility] to [facility] due to abdominal pain and decreased urine output through stoma. Patient as found to have urinary retention due to narrowed stoma lumen opening, with releif of his abdominal pain with urine catheterization. Patient was found to have a dirty UA in [facility] s/p [address] abdomen showed bilateral hydronephrosis and a full stoma however creatinine was at baseline. Patient was transferred to [facility] for evaluation by urology. Patient will be admitted to hospital service for management of chronic medical problems with neurology consulted for management of stoma malfunction. Patient tells me that he is feeling a little better since being in the hospital as the catheterizations relieve his abdominal pain. Denies any chest pain or shortness of breath. HOSPITAL COURSE: 83M PMHx CAD, CVA, HTN, and bladder cancer s/p open radical cystoprostatectomy in 2011 was transferred from [facility] to [facility] due to abdominal pain and decreased urine output through stoma. Patient as found to have urinary retention due to narrowed stoma lumen opening, with releif of his abdominal pain with urine catheterization. Patient was found to have a dirty UA in [facility] s/p [address] abdomen showed bilateral hydro nephrosis and a full stoma however creatinine was at baseline. Patient was transferred to [facility] for evaluation by urology. Patient will be admitted to hospital service for management of chronic medical problems with urology consulted for management of stoma malfunction. Unfortunately evening 06/06/2020 patient had decreased output and underwent a CT abdomen/pelvis which showed perforation of his ileal conduit with spillage of fluid and contrast into the peritoneal space along with a small associated pneumoperitoneum. 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 Olivarez who placed a vazquez catheter into the stoma for drainage. Morphine PRN pain. Given the new development of the perforation our neurology team is not comfortable operating and recommended transfer to higher level of care and urology team that's able to manage this complication. Dr. Olivarez discussed the case with at [facility] and accepted the patient for management. Patient was transferred to [facility] 06/07/2020. At the time of transfer patient was comfortable and hemodynamically stable # Bilateral hydronephrosis: Creatinine increased again today. US 06/06/2020 showing no right hydronephrosis and mild left hydronephrosis. # Suspect UTI: Levofloxacin initially but then stopped urine culture negative # Hypertension: Continue home meds. Monitor and titrate # Hypothyroidism: resume Synthroid. # COPD: not in exacerbation. Continue home inhalers PRN. # Gout: Continue home meds # CVA/CAD: ASA, statin, home meds. # PAD: continue home meds and continue aspirin but hold Plavix for now given possible surgery within the next 24 hours upon transfer # GERD: protonix # MDD: lexapro DISCHARGE MEDICATIONS: Please see below. ALLERGIES: Please see below. PHYSICAL EXAMINATION ON DISCHARGE: Constitutional: Awake and alert, in no apparent distress ENT: Sclera are clear. Mucosa is moist. Respiratory: Lungs CTA bilaterally. No respiratory distress. No use of accessory muscles. Cardiovascular: RRR S1 and S2 are normal, no murmur Gastrointestinal: Abdomen is soft, but a little more distended than yesterday, increased tenderness throughout abdomen compared to yesterday especially around stoma site, BS present. Genitourinary: Stoma with bag in place with Vazquez catheter inserted through stoma. Musculoskeletal: No LE edema. Neurologic: No focal neurological deficit. Mental Status: A&O x3, normal affect Skin: Warm, dry LABORATORY DATA: Please see below. IMAGING: CT ABD & PELVIS W/O CONTRAST 06/06/20 453 IMPRESSION: 1. Perforation of the right lower quadrant ureteral conduit with spillage of fluid and contrast into the peritoneal space. Small associated pneumoperitoneum. 2. Colonic diverticulosis without evidence of diverticulitis. PROGNOSIS: Fair ACTIVITY: [As tolerated]. DIET: Nothing by mouth during transfer for possible surgery tonight DISCHARGE PLAN: Transfer to [facility] in [place] under urologist for management of perforated ileal conduit DISCHARGE INSTRUCTIONS: 1. Transfer to [facility] DISCHARGE CONDITION: [Stable]. TIME SPENT ON DISCHARGE: Greater than 35 minutes. Vital Signs/I&Os Vital Signs Date Time Temp Pulse Resp B/P (MAP) Pulse Ox O2 Delivery O2 Flow Rate FiO2 06/07/20 12:39 18 Room Air 06/07/20 10:30 80 126/87 (100) 95 06/07/20 10:00 99.5 I&O- Last 24 Hours up to 6 AM 06/07/20 06:00 Intake Total 1350 ml Output Total 350 ml Balance 1000 ml Laboratory Data Labs 24H Laboratory Tests 2 06/06/20 16:09: Anion Gap 6L, Glomerular Filtration Rate 26.7L, Calcium Level 8.2L, Magnesium Level 2.3 06/07/20 08:24: Anion Gap 7L, Glomerular Filtration Rate 28.4L, Calcium Level 7.8L, Nucleated Red Blood Cells % (auto) 0.0, Prothrombin Time 14.1H, Prothromb Time International Ratio 1.07 CBC/BMP Laboratory Tests 06/06/20 16:09 06/06/20 23:57 06/07/20 08:24 Microbiology Microbiology 06/05/20 Urine Culture - Final, Complete 06/05/20 Urine Culture - Final, Complete Discharge Medications Scheduled Allopurinol (Allopurinol) 100 Mg Tablet, 200 MG PO DAILY, (Reported) Amlodipine Besylate (Amlodipine Besylate) 5 Mg Tablet, 5 MG PO DAILY, (Reported) Aspirin (Aspirin EC) 81 Mg Tablet.dr, 81 MG PO DAILY, (Reported) Calcium Carbonate (Calcium Carbonate) 500 Mg Tablet, 500 MG PO QID, (Reported) Carboxymethylcellulose Sodium (Refresh Tears) 15 Ml Drops, 1 DROP OU TID, (Reported) Cholecalciferol (Vitamin D3) (Vitamin D3) 1,000 Unit Tablet, 1,000 UNITS PO DAILY, (Reported) Clopidogrel Bisulfate (Clopidogrel) 75 Mg Tablet, 75 MG PO DAILY, (Reported) Cyanocobalamin (Vitamin B-12) (Vitamin B-12) 1,000 Mcg Tablet, 1,000 MCG PO DAILY, (Reported) Doxepin HCl (Doxepin HCl) 10 Mg Capsule, 10 MG PO QHS, (Reported) Escitalopram Oxalate (Escitalopram Oxalate) 20 Mg Tablet, 20 MG PO DAILY, (Reported) Ferrous Gluconate (Ferrous Gluconate) 324 Mg Tablet, 324 MG PO DAILY, (Reported) L.acidoph/L.bulg/B.bif/S.therm (Bacid Caplet) 1 Each Tablet, 1 TAB PO DAILY, (Reported) Levocetirizine Dihydrochloride (Levocetirizine Dihydrochloride) 5 Mg Tablet, 5 MG PO QHS, (Reported) Levothyroxine Sodium (Levothyroxine Sodium) 25 Mcg Tablet, 25 MCG PO QAM, (Reported) Pantoprazole Sodium (Pantoprazole Sodium) 40 Mg Tablet.dr, 40 MG PO DAILY, (Reported) Quetiapine Fumarate (Quetiapine Fumarate) 25 Mg Tablet, 25 MG PO QHS, (Reported) Ropinirole HCl (Ropinirole HCl) 2 Mg Tablet, 2 MG PO BID, (Reported) TAKES AT 1430/2000 Rosuvastatin Calcium (Rosuvastatin Calcium) 20 Mg Tablet, 20 MG PO QHS, (Reported) Sucralfate (Sucralfate) 1 Gm Tablet, 1 GM PO ACHS, (Reported) Trazodone HCl (Trazodone HCl) 50 Mg Tablet, 50 MG PO QHS, (Reported) Scheduled PRN Acetaminophen (Acetaminophen) 325 Mg Tablet, 650 MG PO Q6H PRN for PAIN, (Reported) Albuterol Sulf (Albuterol Sulfate) 2.5 Mg/3 Ml Vial.neb, 2.5 MG INH Q6H PRN for SHORTNESS OF BREATH, (Reported) Colestipol HCl (Colestipol HCl) 500 Gm Granules, 1 SCOOP PO BID PRN for DIARRHEA, (Reported) Dicyclomine HCl (Dicyclomine HCl) 10 Mg Capsule, 10 MG PO BID PRN for BOWEL CRAMPING, (Reported) Epoetin Ramesh-Epbx (Retacrit) 10,000 Unit/1 Ml Vial, 20,000 UNIT INJ QWEEK PRN for ANEMIA, (Reported) Fluticasone Propionate (Flonase Allergy Relief) 9.9 Ml [place].susp, 1 SPRAY NARES DAILY PRN for CONGESTION, (Reported) Allergies Coded Allergies: No Known Allergies (Verified Allergy, Unknown, 06/05/20) EMILY MCINTYRE MD Jun 07, 2020 14:35
[2020-06-07] MEDS ORDERED: diphenhydrAMINE 50MG/ML VIAL (J1200) As Ordered ONE (14:37)
[2020-06-07] MEDS ORDERED: MIDAZOLAM INJ 2MG/2ML VIAL (J2250 PER 1MG) As Ordered ONE (14:38)
[2020-06-07] MEDS ORDERED: ISOVUE-300 61% 50ML VIAL As Ordered ONE ×2 (14:38→15:30)
[2020-06-07] MEDS ORDERED: fentaNYL 100 MCG/2 ML INJECTION (J3010) As Ordered ONE (14:38)
[2020-06-07] MEDS ORDERED: LIDOCAINE 1% MDV 20ML VIAL As Ordered ONE (14:39)
--- NOTE | 2020-06-07 14:39 | IRMSE ---
[facility] IR Moderate Sedation Eval. Date and Time Date: Jun 07, 2020 Time: 14:38 ASA Classification ASA Classification: III-Severe systemic dis. Mallampati Score: II NPO: Yes Obstructive Sleep Apnea: No Interval Plan: moderate sedation DANN CHAVEZ MD Jun 07, 2020 14:38
[2020-06-07] MEDS ORDERED: cefTRIAXone SOD 1GM VIAL (J0696 PER 250MG) As Ordered ONE (14:43)
--- NOTE | 2020-06-08 11:08 | POST-OPPD ---
Postoperative Procedure Note Date Of Procedure: Jun 07, 2020 Time Of Procedure: 16:00 IR Percutaneous bilateral nephrostomy catheter placement using fluoroscopic and ultrasound guidance. IR Bilateral Nephrostogram and Ureterogram. IR Ultrasound of bilateral kidneys. IR Moderate sedation. Clinical Information:Patient with history of bladder cancer status post cystectomy with ileal conduit, formed in 2011. Now diagnosed with Ileal conduit rupture. Patient is referred for bilateral nephrostomy for urinary diversion. Physician: Dr. Balderrama. Procedure: The patient was advised of the benefits, risks, and alternatives of the procedure and informed consent was obtained. A time out was performed with verification of the patient's name, MRN, site of procedure, and type of procedure to be performed. The patient was positioned in the prone position on the angiographic table. The site was prepped and draped in the usual sterile fashion. Moderate sedation was performed by the physician including the presence of an independent trained RN who assisted in monitoring the patient's level of consciousness and physiological status. Following the administration of fentanyl and Versed, the physician spent 60 minutes of continuous sbne-ca-uumy time with the patient. A radiological technologist radiograph reveals no gross abnormality. Left side: Ultrasound of the left kidney demonstrates mild hydronephrosis. The anticipated puncture site on the flank was anesthetized with lidocaine. Using ultrasound guidance, the renal pelvis was accessed the 21-gauge Chiba needle. A nephrostogram was performed which demonstrates mild hydronephrosis. A second 21-gauge Chiba needle was then used under fluoroscopy guidance to access the posterior lower pole calyx. A Wilder wire was then advanced into the collecting system. The needle was then exchanged for a nonvascular introducer set. An Amplatz wire was then advanced into the ureter.A 10 [place] nephrostomy catheter was then advanced into the renal collecting system. The pigtail was formed and locked in position. A final nephrostogram and ureterogram were performed confirming positioning of the pigtail within the renal pelvis with mild hydronephrosis and hydroureter. The left ureter terminates abruptly in the distal segment and does not communicate with the ileal conduit. The catheter was sutured in position with 2-0 Prolene and a sterile dressing applied. The catheter was placed to gravity drainage. Right side: Ultrasound of the right kidney demonstrates mild hydronephrosis. The anticipated puncture site on the flank was anesthetized with lidocaine. Using ultrasound guidance, the renal pelvis was accessed the 21-gauge Chiba needle. A nephrostogram was performed which demonstrates mild hydronephrosis. A second 21-gauge Chiba needle was then used under fluoroscopy guidance to access the posterior lower pole calyx. A Wilder wire was then advanced into the collecting system. The needle was then exchanged for a nonvascular introducer set. An Amplatz wire was then advanced into the ureter.A 10 Citizen Of [place] nephrostomy catheter was then advanced into the renal collecting system. The pigtail was formed and locked in position. A final nephrostogram and ureterogram were performed confirming positioning of the pigtail within the renal pelvis with mild hydronephrosis and hydroureter. The Right-sided ureter communicates with the ileal conduit. The catheter was sutured in position with 2-0 Prolene and a sterile dressing applied. The catheter was placed to gravity drainage. The patient tolerated the procedure well and was returned to the PRU in stable condition. EBL: < 5 mL. Complications:None. Conclusion: 1. Left-sided nephrostogram and ureterogram demonstrate mild hydronephrosis and hydroureter. The left ureter terminates abruptly distally and does not communicate with the ileal conduit. 2. Right-sided nephrostogram and ureterogram demonstrate mild hydronephrosis. The right ureter does communicate with the ileal conduit. 3. Successful bilateral nephrostomy catheter placement for urinary diversion. Patient to follow-up with urology for surgical management. Thank you for this referral. Cc DANN Portillo MD Jun 08, 2020 11:08
--- NOTE | 2020-06-08 11:55 | IPNPDOC ---
Text Note Date of Service The patient was seen on 06/07/20. NOTE Pt was uncomfortable overnight with some abdominal pain but not as significant as on admission. He only put out 250cc yesterday but bag has probably 200cc today. Nephrostomy tubes placed. I spoke with Dr. Curran at [place] who will accept transfer for more definitive management when a bed becomes available. Information shared with Dr. Maddox, Dr. Menendez, Pt and Pts . His wbc was 8.4, UC normal, Creatinine stable 2.35. Physical Exam: Tmax 99.5. Urostomy bag light merlyn urine. Abdomen soft but tenderness especially right of the stoma. No rebound or guarding. No calf swelling or tenderness. Imp/Plan -Ileal Conduit Rupture secondary to a stomal stenosis now with cstheter in Stoma and Bilateral Nephrostomy Tubes awaiting transfer to [place] in [place] for definitive management. -Cont pain management and supportive care -Cont abx coverage for urine in abdominal cavity At least 100 minutes spent today in coordination of care and communication VSLissette, I+O VSLissette, I+O Vital Signs Date Time Temp Pulse Resp B/P (MAP) Pulse Ox O2 Delivery O2 Flow Rate FiO2 06/07/20 18:38 97.6 70 18 145/67 (93) 97 Room Air 06/07/20 16:00 2 I&O- Last 24 Hours up to 6 AM 06/08/20 05:00 Intake Total 0 ml Balance 0 ml THUY MARCELO MD Jun 08, 2020 11:55
== END 2020-06-07 19:30 | disposition short-term general hospital (02) | DRG 982 ==
LOC: M MS5PR 16:03
PROVIDERS: ADMIT Internal Medicine; ATTEND Family Medicine
PROC: 0D7 Gastrointestinal System, Dilation (ICD-10-PCS; 2020-06-06)
PROC: 0T9030Z Drainage of Right Kidney with Drainage Device, Percutaneous Approach (ICD-10-PCS; 2020-06-07)
PROC: 0T9130Z Drainage of Left Kidney with Drainage Device, Percutaneous Approach (ICD-10-PCS; principal; 2020-06-07 14:30)
DX: N99.524 Stenosis of incontinent stoma of urinary tract (principal); K91.71 Accidental puncture and laceration of a digestive system organ or structure during a digestive system procedure; I25.10 Atherosclerotic heart disease of native coronary artery without angina pectoris; I10 Essential (primary) hypertension; J44.9 Chronic obstructive pulmonary disease, unspecified; M19.90 Unspecified osteoarthritis, unspecified site; M48.061 Spinal stenosis, lumbar region without neurogenic claudication; E03.9 Hypothyroidism, unspecified; E78.5 Hyperlipidemia, unspecified; K21.9 Gastro-esophageal reflux disease without esophagitis; M10.9 Gout, unspecified; Z66 Do not resuscitate; Z86.73 Personal history of transient ischemic attack (TIA), and cerebral infarction without residual deficits; Z85.46 Personal history of malignant neoplasm of prostate; Z85.51 Personal history of malignant neoplasm of bladder; Z86.74 Personal history of sudden cardiac arrest; Y83.3 Surgical operation with formation of external stoma as the cause of abnormal reaction of the patient, or of later complication, without mention of misadventure at the time of the procedure; Z79.82 Long term (current) use of aspirin; Z79.02 Long term (current) use of antithrombotics/antiplatelets; Z79.899 Other long term (current) drug therapy; Z98.49 Cataract extraction status, unspecified eye; Z87.891 Personal history of nicotine dependence

== ENCOUNTER → 2020-07-03 | Outpatient (CLI) | payer MEDICARE, BC ==
[~2020-07-03] MED LIST changes: +ACET-838 PO; +ALBU83IN INH; +ALLO100T PO; +AMLO1TAB24 PO; +ASPI81TA26 PO; +BACITAB PO; +CALC500T61 PO; +CLOP75TA2 PO; +COLE5GRA PO; +CYAN100050 PO; +CYSTO-CONRAY II 17.2% 250ML VIAL (Q9958) As Ordered ONE; +D31000TA2 PO; +DICY10CA13 PO; +DOXE10CA PO; +ESCI20TA16 PO; +FERR32TA PO; +FLON1SPR NARES; -GASTROGRAFIN SOLUTION 30ML (Q9963) As Ordered ONE; +ISOVUE-300 61% 50ML VIAL As Ordered ONE; -ISOVUE-370 76% 100ML VIAL (Q9967) As Ordered ONE; +LEVO25TA5 PO; +LEVOTAB10 PO; +PANT40TA29 PO; +QUET1TAB7 PO; +REFR0.5D8 OU; +RETA1000 INJ; +ROPI2TAB3 PO; +ROSU20TA5 PO; +SUCR1TA PO; +TRAZ-186 PO
--- NOTE | 2020-07-03 17:53 | REP ---
INDICATION: HYDRONEPHROSIS. COMPARISON: CT 06/06/2020. TECHNIQUE: Contrast was instilled through the right abdominal stoma at the exit site of an ileal conduit. FINDINGS: Contrast fills the ileal conduit. There is reflux into bilateral mildly dilated ureters. The mildly dilated right pelvocaliceal system is also visualized. There is no contrast extravasation identified along the ileal conduit. IMPRESSION: No evidence of contrast extravasation along the ilial conduit with free reflux into both ureters. 0.6 minutes of fluoroscopy time utilized. <Electronically signed by Nelson Barakat > 07/03/20 [id number]
== END ==
LOC: M RAD 15:29
PROVIDERS: ATTEND Urology
DX: N13.39 Other hydronephrosis (principal)
CPT/HCPCS: 74425; Q9958; Q9967

== ENCOUNTER → 2021-11-06 | Outpatient (REF) | payer MEDICARE, BC ==
[~2021-11-06] MED LIST changes: -ACET-838 PO; +ACET32TAB PO; +ALBU2.5V10 INH; -ALBU83IN INH; +AZEL0.055 NARES; +CIPR-249 PO; +CIPR250T3 PO; +CLON0.2D6 TD; -CYSTO-CONRAY II 17.2% 250ML VIAL (Q9958) As Ordered ONE; -D31000TA2 PO; +ESCI5SOL3 PO; +FAMO20TA PO; +FURO20TA2 PO; +HYDR-3910 PO; -ISOVUE-300 61% 50ML VIAL As Ordered ONE; +LEVO750T13 PO; +LOPE2TAB12 PO; +MIRA0.5T PO; +PLAV1TAB2 PO; +PROC20004 IJ; +QUET1TAB17 PO; -QUET1TAB7 PO; +SODI650T PO; +TREL1AER IN; +VITA100093 PO; +XIFA550T PO
[2021-11-06 17:46] LABS: APPEARANCE, URINE CLOUDY (CLEAR); BACTERIA, URINE AUTO 1+ (NEGATIVE); BILIRUBIN, URINE AUTO NEGATIVE (NEGATIVE); BLOOD, URINE BLOOD 3+ (NEGATIVE); COLOR, URINE AMBER (YELLOW); GLUCOSE, URINE (UA) AUTO NEGATIVE (NEGATIVE); KETONE, URINE AUTO NEGATIVE (NEGATIVE); LEUKOCYTE ESTERASE, URINE AUTO 3+ (NEGATIVE); NITRITE, URINE AUTO NEGATIVE (NEGATIVE); PROTEIN, URINE AUTO 3+ mg/dL (NEGATIVE); RBC, URINE AUTO TNTC /HPF (0-3); SPECIFIC GRAVITY URINE AUTO 1.009 (1.002-1.035); SQUAMOUS EPITHELIAL CELL UR AU 1 /HPF (0-6); UROBILINOGEN, URINE AUTO 0.2 mg/dL (0.0-2.0); WBC, URINE AUTO 134 /HPF (0-3)
== END ==
LOC: M SMT 17:20
PROVIDERS: ATTEND Urology
DX: R53.81 Other malaise (principal)

== ENCOUNTER 2021-12-06 09:25 | Day surgery (SDC) | payer MEDICARE ==
[~2021-12-06] VITALS: Ht 188 cm; Wt 92.9 kg
[~2021-12-06 09:25] MED LIST changes: -CIPR-249 PO; -CIPR250T3 PO; -LOPE2TAB12 PO; +ceFAZolin SOD 2 GM in IV 1 EA IV ONE
[2021-12-06] MEDS ORDERED: CIPR250T3 PO (11:09)
[2021-12-06] MEDS ORDERED: LOPE2TAB12 PO (11:09)
[2021-12-06] MEDS ORDERED: MIDAZOLAM INJ 2MG/2ML VIAL (J2250 PER 1MG) As Ordered ONE (12:05)
[2021-12-06] MEDS ORDERED: propofoL 200 MG/20 ML VIAL As Ordered ONE ×3 (12:06→13:53)
[2021-12-06] MEDS ORDERED: fentaNYL 100 MCG/2 ML INJECTION As Ordered ONE (12:06)
[2021-12-06] MEDS ORDERED: KETAMINE HCL 200 MG/20 ML VIAL As Ordered ONE (12:06)
[2021-12-06] MEDS ORDERED: LIDOCAINE 2% 100MG/5ML SDV (FOR ANES.) As Ordered ONE (12:08)
[2021-12-06] MEDS ORDERED: GLYCOPYRROLATE INJ 0.2 MG/ML 2 ML VIAL As Ordered ONE (12:08)
[2021-12-06] MEDS ORDERED: ONDANSETRON 4MG/2ML VIAL As Ordered ONE (12:08)
[2021-12-06] MEDS ORDERED: LR 1,000 ML IV SCH (12:25)
[2021-12-06] MEDS ORDERED: ISOVUE-300 61% 50ML VIAL As Ordered ONE (12:40)
[2021-12-06] MEDS ORDERED: ePHEDrine SULFATE 25 MG/5 ML(5MG/ML) SYRINGE As Ordered ONE (12:48)
[2021-12-06] MEDS ORDERED: CIPR-249 PO (14:12)
[2021-12-06 16:10] VITALS: BP 172/83
== END 2021-12-06 16:30 | disposition home or self-care (01) ==
LOC: M SDC 09:25
PROVIDERS: ATTEND Urology
DX: R31.0 Gross hematuria (principal); I10 Essential (primary) hypertension; I25.10 Atherosclerotic heart disease of native coronary artery without angina pectoris; I25.2 Old myocardial infarction; E78.5 Hyperlipidemia, unspecified; K21.9 Gastro-esophageal reflux disease without esophagitis; M10.9 Gout, unspecified; D64.9 Anemia, unspecified; Z79.02 Long term (current) use of antithrombotics/antiplatelets; Z79.82 Long term (current) use of aspirin; Z79.899 Other long term (current) drug therapy; E11.9 Type 2 diabetes mellitus without complications; E03.9 Hypothyroidism, unspecified; J45.909 Unspecified asthma, uncomplicated; Z79.51 Long term (current) use of inhaled steroids; Z92.3 Personal history of irradiation; Z92.21 Personal history of antineoplastic chemotherapy; Z85.46 Personal history of malignant neoplasm of prostate; Z85.51 Personal history of malignant neoplasm of bladder
CPT/HCPCS: 52005; 88108; 88305; C1769; C1894; C2617; J0690; J2250; J2405; J3010

== ENCOUNTER 2023-01-28 12:30 | Outpatient (CLI) | payer MEDICARE, MEDICAID ==
[~2023-01-28] VITALS: Ht 188 cm; Wt 74.1 kg
[~2023-01-28 12:30] MED LIST changes: +CIPR-249 PO; +CIPR250T3 PO; +CLOP75TA99 PO; +CYAN-1 PO; -CYAN100050 PO; +DICY-61 PO; -DICY10CA13 PO; +LEVO1TAB40 PO; -LEVO750T13 PO; +LOPE2TAB12 PO; -PLAV1TAB2 PO; -ROPI2TAB3 PO; +ROPI2TAB46 PO; -ROSU20TA5 PO; +ROSU20TA61 PO; -ceFAZolin SOD 2 GM in IV 1 EA IV ONE
[2023-01-28 13:00] VITALS: BP 133/73; O2SAT 97
[2023-01-28] MEDS ORDERED: BEZLOTOXUMAB 750 MG in NS 100 ML IV ONE (13:30)
[2023-01-28] MEDS ORDERED: SODIUM CHLORIDE 0.9% INJ 10 ML SYR IV PRN (13:30)
[2023-01-28 13:48] LABS: BASO % 0.4 % (0.0-1.0); EOS # 0.4 10^3/uL (0.0-0.5); EOS % 4.8 % (0.0-3.0); HEMATOCRIT 28.5 % (42.0-52.0); HEMOGLOBIN 8.9 g/dl (13.5-17.5); LYMPH % 13.8 % (24.0-44.0); MEAN CORPUSCULAR HEMOGLOBIN 29.8 pg (27.0-33.0); MEAN CORPUSCULAR HGB CONC 31.2 g/dl (32.0-36.5); MEAN CORPUSCULAR VOLUME 95.3 fl (80.0-96.0); MONO # 0.7 10^3/uL (0.0-0.8); MONO % 9.2 % (2.0-8.0); NEUTROPHILS # 5.2 10^3/uL (1.5-8.5); NEUTROPHILS % 71.3 % (36.0-66.0); PLATELET COUNT, AUTOMATED 191 10^3/uL (150-450); RED BLOOD COUNT 2.99 10^6/uL (4.30-6.10); WHITE BLOOD COUNT 7.3 10^3/uL (4.0-10.0)
[2023-01-28 14:19] LABS: ALBUMIN 3.1 G/DL (3.2-5.2); BILIRUBIN,TOTAL 0.2 MG/DL (0.3-1.2); CALCIUM LEVEL 8.5 MG/DL (8.3-10.6); CREATININE FOR GFR 1.82 MG/DL (0.70-1.30); GLOMERULAR FILTRATION RATE 37.9 (>35); IMMUNOGLOBULIN A 194.8 MG/DL (40-350); IMMUNOGLOBULIN M 234.9 MG/DL (50-300); POTASSIUM SERUM 5.5 MMOL/L (3.5-5.1); TOTAL PROTEIN 6.1 G/DL (5.7-8.2)
[2023-01-28 14:47] LABS: ERYTHROCYTE SEDIMENTATION RATE 25 mm/hr (0-20)
[2023-01-28 15:00] VITALS: BP 158/77; O2SAT 98
[2023-01-29] MEDS ORDERED: SODIUM CHLORIDE 0.9% INJ 10 ML SYR IV SCH (09:00)
== END 2023-01-28 15:00 ==
LOC: M INFU 12:30
PROVIDERS: ATTEND Internal Medicine Infectious Disease
DX: A04.71 Enterocolitis due to Clostridium difficile, recurrent (principal)
CPT/HCPCS: 36591; 80053; 82784; 85025; 85652; 96365; J0565

== ENCOUNTER → 2023-06-08 | Outpatient (REF) | payer MEDICAID, MEDICARE, OTHER | LOC: M SFHCPLAZ 13:07 | PROVIDERS: ATTEND Internal Medicine Infectious Disease | DX: A49.8 Other bacterial infections of unspecified site (principal) ==

== ENCOUNTER 2023-06-11 16:49 | Outpatient (CLI) | payer MEDICARE, OTHER ==
[~2023-06-11] VITALS: Ht 188 cm; Wt 75.0 kg
[2023-06-11] MEDS ORDERED: FECAL MICROBIOTA, LIVE-JSLM 150ML BAG (REBYOTA) RC ONE (17:30)
[2023-06-11 17:36] VITALS: BP 161/69; O2SAT 96
== END 2023-06-11 17:30 | disposition home or self-care (01) ==
LOC: M OPCLI4PR 16:49
PROVIDERS: ATTEND Internal Medicine Infectious Disease
DX: A04.71 Enterocolitis due to Clostridium difficile, recurrent (principal)
CPT/HCPCS: G0455; J1440

== ENCOUNTER 2024-09-01 08:39 | Inpatient (IN) | payer MEDICARE, MEDICAID ==
[~2024-09-01] VITALS: Ht 188 cm; Wt 80.1 kg
[2024-09-01] VITALS (9 sets, daily range): BP systolic 155–168; BP diastolic 75–76; TEMP 97.5–97.9; O2SAT 93–100
[~2024-09-01 08:39] MED LIST changes: -AZEL0.055 NARES; +AZEL1SPR4 NARES; -HYDR-3910 PO; +HYDR25TA87 PO; -ROSU20TA61 PO; +ROSU20TA86 PO
[2024-09-01 09:28] LABS: BASO % 0.2 % (0.0-1.0); EOS # 0.5 10^3/uL (0.0-0.5); HEMATOCRIT 27.2 % (42.0-52.0); HEMOGLOBIN 8.5 g/dl (13.5-17.5); LYMPH # 1.8 10^3/uL (1.5-5.0); LYMPH % 11.6 % (24.0-44.0); MEAN CORPUSCULAR HEMOGLOBIN 28.1 pg (27.0-33.0); MEAN CORPUSCULAR HGB CONC 31.3 g/dl (32.0-36.5); MEAN CORPUSCULAR VOLUME 89.8 fl (80.0-96.0); MONO # 0.5 10^3/uL (0.0-0.8); MONO % 3.2 % (2.0-8.0); NEUTROPHILS # 12.1 10^3/uL (1.5-8.5); NEUTROPHILS % 79.6 % (36.0-66.0); PLATELET COUNT, AUTOMATED 230 10^3/uL (150-450); RED BLOOD COUNT 3.03 10^6/uL (4.30-6.10); WHITE BLOOD COUNT 15.3 10^3/uL (4.0-10.0)
[2024-09-01 09:39] LABS: INR 1.17; PROTHROMBIN TIME 15.2 SECONDS (12.5-14.5)
[2024-09-01 10:03] LABS: ALBUMIN 2.3 G/DL (3.2-5.2); BILIRUBIN,DIRECT 0.1 MG/DL (<0.4); BILIRUBIN,TOTAL 0.3 MG/DL (0.3-1.2); CALCIUM LEVEL 8.9 MG/DL (8.3-10.6); CREATININE FOR GFR 2.26 MG/DL (0.70-1.30); GLOMERULAR FILTRATION RATE 29.4 (>35); POTASSIUM SERUM 4.6 MMOL/L (3.5-5.1); TOTAL PROTEIN 5.9 G/DL (5.7-8.2)
[2024-09-01] MEDS: FUROSEMIDE 100MG/10ML VIAL IV ONE (11:01)
[2024-09-01] MEDS ORDERED: ELIQ2.5T PO (12:18)
[2024-09-01] MEDS ORDERED: DOXY100C3 PO (12:18)
[2024-09-01] MEDS ORDERED: VENTAER INH (12:18)
[2024-09-01] MEDS ORDERED: DIPH1TAB81 PO (12:18)
[2024-09-01] MEDS ORDERED: FAMO40TA3 PO (12:18)
[2024-09-01] MEDS ORDERED: ATOR40TA75 PO (12:18)
[2024-09-01] MEDS ORDERED: FERR324T12 PO (12:18)
[2024-09-01] MEDS ORDERED: LEVO100T5 PO (12:18)
[2024-09-01] MEDS ORDERED: BUSP10TA PO (12:18)
[2024-09-01] MEDS ORDERED: PRAM1TAB7 PO (12:18)
[2024-09-01] MEDS ORDERED: VIBE1TAB2 PO (12:18)
[2024-09-01] MEDS ORDERED: IPRA0.00 INH (12:18)
[2024-09-01] MEDS ORDERED: MULT-90 PO (12:18)
[2024-09-01] MEDS ORDERED: AMIT10TA7 PO (12:18)
[2024-09-01] MEDS ORDERED: DILT240C83 PO (12:18)
[2024-09-01] MEDS ORDERED: B-12100010 PO (12:18)
[2024-09-01] MEDS ORDERED: FLON1SPR (12:18)
[2024-09-01] MEDS ORDERED: HOME MED LIST COMPLETE! XX SCH (12:20)
[2024-09-01 12:37] LABS: C REACTIVE PROTEIN QUANTITATIV 4.37 MG/DL (<1.0)
[2024-09-01 12:50] LABS: PROCALCITONIN 0.17 ng/ml
[2024-09-01] MEDS: VITAMIN D 1,000 INTERNATIONAL UNITS TABLET PO SCH (16:28)
[2024-09-01] MEDS: ASPIRIN 81MG ENTERIC TABLET PO SCH (16:28)
[2024-09-01] MEDS: FERROUS SULFATE 325MG TAB PO SCH (16:28)
[2024-09-01] MEDS: CYANOCOBALAMIN 500 MCG TAB PO SCH (16:29)
[2024-09-01] MEDS: LEVOTHYROXINE 100MCG TABLET (0.1MG) PO SCH (16:29)
[2024-09-01] MEDS: FAMOTIDINE 20 MG TAB PO SCH (16:29)
[2024-09-01] MEDS: HEPARIN SOD (PORCINE) 5000UNITS/ML 1ML VIAL/SYRINGE SQ SCH (16:30)
[2024-09-01] MEDS: OYSTER SHELL CALCIUM 500 MG TAB PO SCH (17:20)
[2024-09-01] MEDS: FLUTICASONE PROP 0.05% NASAL SPRAY 16 GM (FLONASE) SCH (17:20)
[2024-09-01] MEDS: ACETAMINOPHEN 325 MG TAB PO PRN (17:21)
[2024-09-01] MEDS: METOPROLOL TART 50 MG TAB PO SCH (17:48)
[2024-09-01 18:09] LABS: THYROID STIMULATING HORMONE 1.345 uIU/ML (0.55-4.78)
[2024-09-01] MEDS: ADVAIR HFA 115/21MCG INHALER INH SCH (19:41)
[2024-09-01] MEDS: IPRATROPIUM 0.5MG/ALBUTEROL 2.5MG INH SOL UD 3ML (DUONEB) NEB PRN (19:56)
[2024-09-01] MEDS ORDERED: METOPROLOL TART 50 MG TAB PO SCH (21:00)
[2024-09-01] MEDS: PRAMIPEXOLE 1 MG TAB PO SCH (22:06)
[2024-09-01] MEDS: SODIUM BICARBONATE 325 MG TAB PO SCH (22:06)
[2024-09-01] MEDS: RAMELTEON 8 MG TAB (ROZEREM) PO ONE (22:06)
[2024-09-01] MEDS: busPIRone 10 MG TAB PO SCH (22:07)
[2024-09-01] MEDS: AMITRIPTYLINE 10MG TABLET PO SCH (22:08)
[2024-09-01] MEDS: ATORVASTATIN 20 MG TAB PO SCH (22:08)
[2024-09-02] VITALS (23 sets, daily range): BP systolic 119–173; BP diastolic 58–86; TEMP 97.3–98.2; O2SAT 97–100
[2024-09-02 05:47] LABS: BASO % 0.1 % (0.0-1.0); HEMATOCRIT 27.1 % (42.0-52.0); HEMOGLOBIN 8.4 g/dl (13.5-17.5); LYMPH % 17.1 % (24.0-44.0); MEAN CORPUSCULAR HEMOGLOBIN 27.5 pg (27.0-33.0); MEAN CORPUSCULAR VOLUME 88.6 fl (80.0-96.0); MONO # 0.7 10^3/uL (0.0-0.8); NEUTROPHILS # 13.4 10^3/uL (1.5-8.5); PLATELET COUNT, AUTOMATED 246 10^3/uL (150-450); RED BLOOD COUNT 3.06 10^6/uL (4.30-6.10); WHITE BLOOD COUNT 17.4 10^3/uL (4.0-10.0)
[2024-09-02 06:15] LABS: ALBUMIN 2.1 G/DL (3.2-5.2); C REACTIVE PROTEIN QUANTITATIV 4.48 MG/DL (<1.0); CALCIUM LEVEL 8.7 MG/DL (8.3-10.6); CREATININE FOR GFR 1.82 MG/DL (0.70-1.30); GLOMERULAR FILTRATION RATE 37.8 (>35); PHOSPHORUS LEVEL 3.7 MG/DL (2.4-5.1); POTASSIUM SERUM 4.9 MMOL/L (3.5-5.1)
[2024-09-02] MEDS: FUROSEMIDE 40MG/4ML VIAL IV SCH (06:47)
[2024-09-02] MEDS: TIOTROPIUM INHALER/CAPSULE (SPIRIVA) INH SCH (07:25)
[2024-09-02] MEDS: METOPROLOL TART 50 MG TAB PO ONE (08:39)
[2024-09-02] MEDS: METOPROLOL TART 25 MG TABLET PO SCH (10:02)
[2024-09-02 10:28] LABS: PERCENT SATURATION 11.7 % (19.7-50.0)
[2024-09-02 17:51] LABS: SOURCE, BODY FLUID pH PLEURAL
[2024-09-02 18:03] LABS: APPEARANCE, BODY FLUID HAZY (CLEAR); PLEURAL FL COLOR YELLOW (COLORLESS); SOURCE, BODY FLUID PLEURAL
[2024-09-02 18:21] LABS: SOURCE, BODY FLUID ALBUMIN PLEURAL
[2024-09-02 18:26] LABS: SOURCE, BODY FLUID GLUCOSE PLEURAL; SOURCE, BODY FLUID TRIG PLEURAL; TRIGLYCERIDE, BODY FLUID 26 MG/DL (NOT ESTABLISHED)
[2024-09-02 18:27] LABS: LDH, BODY FLUID 170 U/L (NOT ESTABLISHED); SOURCE, BODY FLUID LDH PLEURAL
[2024-09-02 18:28] LABS: AMYLASE, BODY FLUID 42 U/L (NOT ESTABLISHED); CHOLESTEROL, BODY FLUID 41 MG/DL (NOT ESTABLISHED); SOURCE, BODY FLUID AMYLASE PLEURAL; SOURCE, BODY FLUID CHOL PLEURAL
[2024-09-02 18:42] LABS: SOURCE, BODY FLUID TOT PROTEIN PLEURAL; TOTAL PROTEIN, BODY FLUID 2.8 G/DL (NOT ESTABLISHED)
[2024-09-02] MEDS: RAMELTEON 8 MG TAB (ROZEREM) PO PRN (23:55)
[2024-09-03] VITALS (9 sets, daily range): BP systolic 115–141; BP diastolic 56–77; TEMP 97.5–98.4; O2SAT 98–100
[2024-09-03 06:36] LABS: BASO % 0.2 % (0.0-1.0); EOS # 0.4 10^3/uL (0.0-0.5); EOS % 2.4 % (0.0-3.0); HEMATOCRIT 29.4 % (42.0-52.0); HEMOGLOBIN 9.3 g/dl (13.5-17.5); LYMPH # 3.1 10^3/uL (1.5-5.0); LYMPH % 19.5 % (24.0-44.0); MEAN CORPUSCULAR HEMOGLOBIN 27.8 pg (27.0-33.0); MEAN CORPUSCULAR HGB CONC 31.6 g/dl (32.0-36.5); MONO # 0.8 10^3/uL (0.0-0.8); NEUTROPHILS # 11.2 10^3/uL (1.5-8.5); NEUTROPHILS % 70.8 % (36.0-66.0); PLATELET COUNT, AUTOMATED 279 10^3/uL (150-450); RED BLOOD COUNT 3.34 10^6/uL (4.30-6.10); WHITE BLOOD COUNT 15.7 10^3/uL (4.0-10.0)
[2024-09-03 07:09] LABS: ALBUMIN 2.2 G/DL (3.2-5.2); CALCIUM LEVEL 8.2 MG/DL (8.3-10.6); CREATININE FOR GFR 1.88 MG/DL (0.70-1.30); GLOMERULAR FILTRATION RATE 36.4 (>35); PHOSPHORUS LEVEL 3.6 MG/DL (2.4-5.1); POTASSIUM SERUM 4.5 MMOL/L (3.5-5.1)
[2024-09-03] MEDS ORDERED: SUCRALFATE 1 GM TAB PO SCH (12:00)
[2024-09-03] MEDS: FERRIC CARBOXYMALTOSE INJ 750 MG, VIAL MATE ADAPTER 1 EACH in NS 100 ML IV ONE (14:15)
[2024-09-03] MEDS: FUROSEMIDE 40MG/4ML VIAL IV SCH (16:13)
[2024-09-03] MEDS: ALPRAZolam 0.25 MG TAB PO SCH (20:28)
[2024-09-03] MEDS: APIXABAN 2.5 MG TAB (ELIQUIS) PO SCH (20:28)
[2024-09-03 22:40] LABS: MAGNESIUM LEVEL 1.4 MG/DL (1.8-2.4)
[2024-09-03 22:45] LABS: TOTAL 25(OH) VITAMIN D 53.6 NG/ML (20.0-100.0)
[2024-09-04] VITALS (7 sets, daily range): BP systolic 128–140; BP diastolic 61–69; TEMP 97.8–98.6; O2SAT 95–99
[2024-09-04 07:32] LABS: BASO % 0.2 % (0.0-1.0); EOS # 0.6 10^3/uL (0.0-0.5); EOS % 3.3 % (0.0-3.0); HEMATOCRIT 34.3 % (42.0-52.0); HEMOGLOBIN 10.4 g/dl (13.5-17.5); LYMPH # 2.9 10^3/uL (1.5-5.0); LYMPH % 16.9 % (24.0-44.0); MEAN CORPUSCULAR HEMOGLOBIN 27.1 pg (27.0-33.0); MEAN CORPUSCULAR HGB CONC 30.3 g/dl (32.0-36.5); MEAN CORPUSCULAR VOLUME 89.3 fl (80.0-96.0); MONO # 0.9 10^3/uL (0.0-0.8); NEUTROPHILS # 12.4 10^3/uL (1.5-8.5); NEUTROPHILS % 72.3 % (36.0-66.0); PLATELET COUNT, AUTOMATED 306 10^3/uL (150-450); RED BLOOD COUNT 3.84 10^6/uL (4.30-6.10); WHITE BLOOD COUNT 17.1 10^3/uL (4.0-10.0)
[2024-09-04 08:01] LABS: ALBUMIN 2.2 G/DL (3.2-5.2); CALCIUM LEVEL 8.1 MG/DL (8.3-10.6); CREATININE FOR GFR 1.96 MG/DL (0.70-1.30); GLOMERULAR FILTRATION RATE 34.7 (>35); MAGNESIUM LEVEL 1.2 MG/DL (1.8-2.4); PHOSPHORUS LEVEL 3.2 MG/DL (2.4-5.1); POTASSIUM SERUM 4.4 MMOL/L (3.5-5.1)
[2024-09-04] MEDS: MAG SULF 1GM/100ML (MAG RUN) 1 GM in IV 1 EA IV SCH (08:49)
[2024-09-04] MEDS: LOMOTIL 2.5MG/0.025MG TABLET PO PRN (08:49)
[2024-09-04] MEDS: ALPRAZolam 0.5 MG TAB PO SCH (20:19)
[2024-09-05] VITALS (17 sets, daily range): BP systolic 122–142; BP diastolic 58–65; TEMP 97.1–98.9; O2SAT 95–100
[2024-09-05 05:15] LABS: BASO % 0.2 % (0.0-1.0); EOS # 0.4 10^3/uL (0.0-0.5); EOS % 2.1 % (0.0-3.0); HEMATOCRIT 32.3 % (42.0-52.0); HEMOGLOBIN 9.9 g/dl (13.5-17.5); LYMPH # 2.7 10^3/uL (1.5-5.0); LYMPH % 15.2 % (24.0-44.0); MEAN CORPUSCULAR HEMOGLOBIN 27.2 pg (27.0-33.0); MEAN CORPUSCULAR HGB CONC 30.7 g/dl (32.0-36.5); MEAN CORPUSCULAR VOLUME 88.7 fl (80.0-96.0); MONO # 1.1 10^3/uL (0.0-0.8); MONO % 5.9 % (2.0-8.0); NEUTROPHILS # 13.5 10^3/uL (1.5-8.5); NEUTROPHILS % 74.9 % (36.0-66.0); PLATELET COUNT, AUTOMATED 246 10^3/uL (150-450); RED BLOOD COUNT 3.64 10^6/uL (4.30-6.10)
[2024-09-05 05:40] LABS: CALCIUM LEVEL 7.6 MG/DL (8.3-10.6); CREATININE FOR GFR 1.9 MG/DL (0.70-1.30); MAGNESIUM LEVEL 1.5 MG/DL (1.8-2.4); PHOSPHORUS LEVEL 2.8 MG/DL (2.4-5.1); POTASSIUM SERUM 4.3 MMOL/L (3.5-5.1)
[2024-09-05] MEDS: MAG SULF 1GM/100ML (MAG RUN) 1 GM in IV 1 EA IV SCH (06:29)
[2024-09-05] MEDS: DOXYCYCLINE HYCLATE 100MG TABLET PO SCH (10:43)
[2024-09-05] MEDS: cefTRIAXone SOD 1 GM in DEXTROSE 5% (D5W) ADV/MINI-BAG 50 ML IV SCH (12:24)
[2024-09-05 14:43] LABS: PROCALCITONIN 0.16 ng/ml
[2024-09-06] VITALS (15 sets, daily range): BP systolic 119–148; BP diastolic 58–67; TEMP 97.6–98.9; O2SAT 95–100
[2024-09-06 08:50] LABS: BASO # 0.1 10^3/uL (0.0-0.2); BASO % 0.2 % (0.0-1.0); EOS # 0.5 10^3/uL (0.0-0.5); EOS % 2.6 % (0.0-3.0); HEMOGLOBIN 9.7 g/dl (13.5-17.5); LYMPH # 2.6 10^3/uL (1.5-5.0); LYMPH % 12.7 % (24.0-44.0); MEAN CORPUSCULAR HEMOGLOBIN 27.7 pg (27.0-33.0); MEAN CORPUSCULAR HGB CONC 31.3 g/dl (32.0-36.5); MEAN CORPUSCULAR VOLUME 88.6 fl (80.0-96.0); MONO # 1.3 10^3/uL (0.0-0.8); MONO % 6.3 % (2.0-8.0); NEUTROPHILS # 15.7 10^3/uL (1.5-8.5); NEUTROPHILS % 76.2 % (36.0-66.0); PLATELET COUNT, AUTOMATED 274 10^3/uL (150-450); WHITE BLOOD COUNT 20.6 10^3/uL (4.0-10.0)
[2024-09-06 09:13] LABS: ALBUMIN 1.9 G/DL (3.2-5.2); CALCIUM LEVEL 7.8 MG/DL (8.3-10.6); CREATININE FOR GFR 1.84 MG/DL (0.70-1.30); GLOMERULAR FILTRATION RATE 37.3 (>35); PHOSPHORUS LEVEL 2.9 MG/DL (2.4-5.1); POTASSIUM SERUM 4.2 MMOL/L (3.5-5.1)
[2024-09-06 15:37] LABS: SOURCE PERIPHERAL SMEAR
[2024-09-06 18:52] LABS: KETONE, URINE AUTO RFX NEGATIVE (NEGATIVE); MUCUS, URINE RFX SMALL (NEGATIVE); NITRITE, URINE AUTO RFX NEGATIVE (NEGATIVE); RBC, URINE AUTO RFX 2 /HPF (0-3); SQUAM EPITHELIAL CELL UR AURFX 0 /HPF (0-6)
[2024-09-06 18:56] LABS: LEUKOCYTE ESTERASE UR AUTO RFX 2+ (NEGATIVE); WBC, URINE AUTO RFX 62 /HPF (0-3)
[2024-09-06 20:39] LABS: BASO % 0.2 % (0.0-1.0); EOS # 0.3 10^3/uL (0.0-0.5); EOS % 1.7 % (0.0-3.0); HEMATOCRIT 35.7 % (42.0-52.0); HEMOGLOBIN 10.6 g/dl (13.5-17.5); LYMPH # 2.4 10^3/uL (1.5-5.0); LYMPH % 12.3 % (24.0-44.0); MEAN CORPUSCULAR HEMOGLOBIN 27.7 pg (27.0-33.0); MEAN CORPUSCULAR HGB CONC 29.7 g/dl (32.0-36.5); MEAN CORPUSCULAR VOLUME 93.5 fl (80.0-96.0); MONO # 1.1 10^3/uL (0.0-0.8); MONO % 5.8 % (2.0-8.0); NEUTROPHILS # 15.3 10^3/uL (1.5-8.5); NEUTROPHILS % 78.6 % (36.0-66.0); PLATELET COUNT, AUTOMATED 307 10^3/uL (150-450); RED BLOOD COUNT 3.82 10^6/uL (4.30-6.10); WHITE BLOOD COUNT 19.5 10^3/uL (4.0-10.0)
[2024-09-06] MEDS: traZODone 25MG PER 1/2 TABLET PO SCH (20:41)
[2024-09-07] VITALS (29 sets, daily range): BP systolic 111–161; BP diastolic 54–72; TEMP 97.1–98.9; O2SAT 94–99
[2024-09-07 10:59] LABS: BASO # 0.1 10^3/uL (0.0-0.2); BASO % 0.3 % (0.0-1.0); EOS # 0.4 10^3/uL (0.0-0.5); EOS % 2.1 % (0.0-3.0); HEMATOCRIT 34.5 % (42.0-52.0); HEMOGLOBIN 10.9 g/dl (13.5-17.5); LYMPH # 2.2 10^3/uL (1.5-5.0); LYMPH % 11.6 % (24.0-44.0); MEAN CORPUSCULAR HEMOGLOBIN 27.7 pg (27.0-33.0); MEAN CORPUSCULAR HGB CONC 31.6 g/dl (32.0-36.5); MEAN CORPUSCULAR VOLUME 87.8 fl (80.0-96.0); MONO # 1.4 10^3/uL (0.0-0.8); MONO % 7.3 % (2.0-8.0); NEUTROPHILS # 14.8 10^3/uL (1.5-8.5); PLATELET COUNT, AUTOMATED 293 10^3/uL (150-450); RED BLOOD COUNT 3.93 10^6/uL (4.30-6.10); WHITE BLOOD COUNT 19.2 10^3/uL (4.0-10.0)
[2024-09-07 11:33] LABS: ALBUMIN 2.7 G/DL (3.2-5.2); CALCIUM LEVEL 8.1 MG/DL (8.3-10.6); CREATININE FOR GFR 2.09 MG/DL (0.70-1.30); GLOMERULAR FILTRATION RATE 32.2 (>35); MAGNESIUM LEVEL 1.8 MG/DL (1.8-2.4); PHOSPHORUS LEVEL 3.5 MG/DL (2.4-5.1); POTASSIUM SERUM 3.8 MMOL/L (3.5-5.1)
[2024-09-07] MEDS ORDERED: PILL CUTTER 1 EACH XX PRN (12:15)
[2024-09-07] MEDS: MIRALAX *UNIT DOSE* 17GM PACKET PO SCH (12:48)
[2024-09-07] MEDS: LIDOCAINE 5% (LIDODERM) PATCH TD SCH (12:48)
[2024-09-07] MEDS: ACETAMINOPHEN 500 MG TAB PO SCH (14:46)
[2024-09-07] MEDS: oxyCODONE 5MG TAB PO SCH (14:47)
[2024-09-07] MEDS: traZODone 25MG PER 1/2 TABLET PO SCH (21:23)
[2024-09-07] MEDS: DICLOFENAC EPOLAMINE 1.3% PATCH TOP SCH (21:24)
[2024-09-07 21:52] LABS: APPEARANCE, BODY FLUID CLEAR (CLEAR); PH BODY FLUID 7.335 UNITS (NOT ESTABLISHED); PLEURAL FL COLOR PALE YELLOW (COLORLESS); SOURCE, BODY FLUID PLEURAL; SOURCE, BODY FLUID pH PLEURAL
[2024-09-07 21:55] LABS: SOURCE, BODY FLUID ALBUMIN PLEURAL
[2024-09-07 22:00] LABS: SOURCE, BODY FLUID GLUCOSE PLEURAL; SOURCE, BODY FLUID TRIG PLEURAL; TRIGLYCERIDE, BODY FLUID 66 MG/DL (NOT ESTABLISHED)
[2024-09-07 22:01] LABS: LDH, BODY FLUID 424 U/L (NOT ESTABLISHED); SOURCE, BODY FLUID LDH PLEURAL
[2024-09-07 22:02] LABS: AMYLASE, BODY FLUID 68 U/L (NOT ESTABLISHED); CHOLESTEROL, BODY FLUID 68 MG/DL (NOT ESTABLISHED); SOURCE, BODY FLUID AMYLASE PLEURAL; SOURCE, BODY FLUID CHOL PLEURAL
[2024-09-07 22:42] LABS: SOURCE, BODY FLUID TOT PROTEIN PLEURAL
[2024-09-08] VITALS (25 sets, daily range): BP systolic 102–145; BP diastolic 51–66; TEMP 97.2–99.9; O2SAT 92–97
[2024-09-08 07:58] LABS: BASO % 0.2 % (0.0-1.0); EOS # 0.4 10^3/uL (0.0-0.5); EOS % 2.5 % (0.0-3.0); LYMPH # 1.8 10^3/uL (1.5-5.0); LYMPH % 11.9 % (24.0-44.0); MEAN CORPUSCULAR HEMOGLOBIN 27.3 pg (27.0-33.0); MEAN CORPUSCULAR HGB CONC 31.5 g/dl (32.0-36.5); MEAN CORPUSCULAR VOLUME 86.6 fl (80.0-96.0); NEUTROPHILS # 11.4 10^3/uL (1.5-8.5); NEUTROPHILS % 77.3 % (36.0-66.0); PLATELET COUNT, AUTOMATED 255 10^3/uL (150-450); RED BLOOD COUNT 3.22 10^6/uL (4.30-6.10); WHITE BLOOD COUNT 14.8 10^3/uL (4.0-10.0)
[2024-09-08 08:04] LABS: HEMATOCRIT 27.9 % (42.0-52.0); HEMOGLOBIN 8.8 g/dl (13.5-17.5)
[2024-09-08 08:42] LABS: ALBUMIN 2.5 G/DL (3.2-5.2); CALCIUM LEVEL 8.1 MG/DL (8.3-10.6); CREATININE FOR GFR 2.29 MG/DL (0.70-1.30); MAGNESIUM LEVEL 1.7 MG/DL (1.8-2.4); PHOSPHORUS LEVEL 5.1 MG/DL (2.4-5.1); POTASSIUM SERUM 3.7 MMOL/L (3.5-5.1)
[2024-09-08 09:51] LABS: TOTAL PROTEIN 6.9 G/DL (5.7-8.2)
[2024-09-08] MEDS ORDERED: MOM 30ML SUSPENSION UDC PO PRN (09:55)
[2024-09-08] MEDS ORDERED: SENNA 8.6 MG TAB (SENOKOT) PO PRN (09:55)
[2024-09-08] MEDS: MAGNESIUM OXIDE 400MG TAB (MAG-OX) PO SCH (09:57)
[2024-09-08] MEDS: NS 50 ML SYRINGE INTRAPLEU SCH (15:08)
[2024-09-08] MEDS: ALTEPLASE 10MG IN NS 60ML SYRINGE INTRAPLEU SCH (15:08)
[2024-09-08] MEDS: PULMOZYME 5MG IN NS 55ML SYRINGE INTRAPLEU SCH (15:09)
[2024-09-08] MEDS ORDERED: oxyCODONE 5MG TAB PO ONE ×2 (16:50→17:00)
[2024-09-08] MEDS: MORPHINE 4 MG/ML 1ML VIAL IV ONE (17:17)
[2024-09-08 17:34] LABS: APPEARANCE, BODY FLUID TURBID (CLEAR); PLEURAL FL COLOR RED (COLORLESS); SOURCE, BODY FLUID PLEURAL
[2024-09-08] MEDS: MORPHINE 2 MG/ML 1ML VIAL IV ONE (20:15)
[2024-09-09] VITALS (26 sets, daily range): BP systolic 90–136; BP diastolic 42–60; TEMP 98–98.6; O2SAT 92–98
[2024-09-09 06:47] LABS: HEMATOCRIT 26.8 % (42.0-52.0); HEMOGLOBIN 8.5 g/dl (13.5-17.5); MEAN CORPUSCULAR HEMOGLOBIN 27.8 pg (27.0-33.0); MEAN CORPUSCULAR HGB CONC 31.7 g/dl (32.0-36.5); MEAN CORPUSCULAR VOLUME 87.6 fl (80.0-96.0); PLATELET COUNT, AUTOMATED 296 10^3/uL (150-450); RED BLOOD COUNT 3.06 10^6/uL (4.30-6.10); WHITE BLOOD COUNT 14.3 10^3/uL (4.0-10.0)
[2024-09-09 07:15] LABS: ALBUMIN 2.3 G/DL (3.2-5.2); BILIRUBIN,TOTAL 0.2 MG/DL (0.3-1.2); CALCIUM LEVEL 7.9 MG/DL (8.3-10.6); CREATININE FOR GFR 2.45 MG/DL (0.70-1.30); GLOMERULAR FILTRATION RATE 26.8 (>35); MAGNESIUM LEVEL 1.8 MG/DL (1.8-2.4); POTASSIUM SERUM 3.8 MMOL/L (3.5-5.1); TOTAL PROTEIN 5.6 G/DL (5.7-8.2)
[2024-09-09] MEDS ORDERED: FUROSEMIDE 40MG/4ML VIAL IV SCH (09:00)
[2024-09-09] MEDS: LR 500 ML IV ONE (09:07)
[2024-09-09] MEDS: LACTATED RINGER'S 1000 ML IV ONE (10:11)
[2024-09-09] MEDS: MORPHINE 2 MG/ML 1ML VIAL IV ONE ×2 (10:13→20:54)
[2024-09-09 10:51] LABS: PROCALCITONIN 0.5 ng/ml
[2024-09-09] MEDS: POTASSIUM CHLORIDE 10MEQ SR TABLET PO ONE (11:22)
[2024-09-09] MEDS: MEROPENEM INJ 1 GM in IV 1 EA IV SCH (12:50)
[2024-09-09 16:24] LABS: C REACTIVE PROTEIN QUANTITATIV 21.62 MG/DL (<1.0)
[2024-09-10] VITALS (18 sets, daily range): BP systolic 100–119; BP diastolic 46–59; TEMP 97.6–99.6; O2SAT 90–96
[2024-09-10 05:45] LABS: HEMATOCRIT 25.4 % (42.0-52.0); MEAN CORPUSCULAR HEMOGLOBIN 28.2 pg (27.0-33.0); MEAN CORPUSCULAR HGB CONC 31.5 g/dl (32.0-36.5); MEAN CORPUSCULAR VOLUME 89.4 fl (80.0-96.0); PLATELET COUNT, AUTOMATED 288 10^3/uL (150-450); RED BLOOD COUNT 2.84 10^6/uL (4.30-6.10); WHITE BLOOD COUNT 18.4 10^3/uL (4.0-10.0)
[2024-09-10 06:13] LABS: BILIRUBIN,TOTAL 0.2 MG/DL (0.3-1.2); CREATININE FOR GFR 2.49 MG/DL (0.70-1.30); GLOMERULAR FILTRATION RATE 26.3 (>35); MAGNESIUM LEVEL 1.9 MG/DL (1.8-2.4); POTASSIUM SERUM 4.6 MMOL/L (3.5-5.1); TOTAL PROTEIN 5.5 G/DL (5.7-8.2)
[2024-09-10] MEDS: NS 50 ML SYRINGE INTRAPLEU SCH (10:28)
[2024-09-10] MEDS: PULMOZYME 5MG IN NS 55ML SYRINGE INTRAPLEU SCH (10:29)
[2024-09-10] MEDS: ALTEPLASE 10MG IN NS 60ML SYRINGE INTRAPLEU SCH (10:29)
[2024-09-10] MEDS ORDERED: SODIUM BICARBONATE 75 MEQ in NS 0.45% 1,000 ML IV SCH (15:00)
[2024-09-10] MEDS: SODIUM BICARBONATE 75 MEQ in NS 0.45% 1,000 ML IV SCH (16:18)
[2024-09-10] MEDS: MORPHINE 2 MG/ML 1ML VIAL IV PRN (16:19)
[2024-09-10] MEDS: ACETAMINOPHEN *IV* 1,000 MG in IV 1 EA IV PRN (17:41)
[2024-09-10] MEDS ORDERED: MORPHINE 2 MG/ML 1ML VIAL IV PRN (18:00)
[2024-09-10] MEDS ORDERED: oxyCODONE 5MG TAB PO SCH (18:00)
[2024-09-10] MEDS: oxyCODONE 5MG TAB PO SCH (20:30)
[2024-09-11] VITALS (64 sets, daily range): BP systolic 71–141; BP diastolic 42–77; TEMP 97.3–97.9; O2SAT 85–100
[2024-09-11] MEDS ORDERED: NOREPINEPHRINE 4MG IN D5 250ML 4 MG in IV 1 EA IV SCH (00:45)
[2024-09-11 01:00] LABS: HEMATOCRIT 21.5 % (42.0-52.0); MEAN CORPUSCULAR HEMOGLOBIN 27.6 pg (27.0-33.0); MEAN CORPUSCULAR HGB CONC 29.8 g/dl (32.0-36.5); MEAN CORPUSCULAR VOLUME 92.7 fl (80.0-96.0); RED BLOOD COUNT 2.32 10^6/uL (4.30-6.10); WHITE BLOOD COUNT 24.3 10^3/uL (4.0-10.0)
[2024-09-11 01:03] LABS: HEMOGLOBIN 6.4 g/dl (13.5-17.5); PLATELET COUNT, AUTOMATED 382 10^3/uL (150-450)
[2024-09-11 02:39] LABS: VENOUS BASE EXCESS -13.2 (-2.0-2.0); VENOUS O2 SATURATION 93.8 % (60.0-80.0); VENOUS PARTIAL PRESSURE CO2 43.7 mmHg (38.0-50.0); VENOUS PARTIAL PRESSURE O2 79.7 mmHg (30.0-50.0); VENOUS PH 7.153 UNITS (7.330-7.430); VENOUS STANDARD HCO3 14.1 MMOL/L; VENOUS TOTAL CO2 16.3 MMOL/L (24.0-28.0)
[2024-09-11 02:46] LABS: HEMATOCRIT 32.4 % (42.0-52.0)
[2024-09-11 02:50] LABS: ALBUMIN 1.8 G/DL (3.2-5.2); BILIRUBIN,TOTAL 0.3 MG/DL (0.3-1.2); CALCIUM LEVEL 8.4 MG/DL (8.3-10.6); CREATININE FOR GFR 2.94 MG/DL (0.70-1.30); GLOMERULAR FILTRATION RATE 21.7 (>35); POTASSIUM SERUM 5.4 MMOL/L (3.5-5.1)
[2024-09-11] MEDS: FACTOR XA,INACTIVATED-ZHZO 480 MG in APPROPRIATE DILUENT 48 ML IV ONE (02:55)
[2024-09-11] MEDS: FACTOR XA,INACTIVATED-ZHZO 400 MG in APPROPRIATE DILUENT 40 ML IV ONE (02:55)
[2024-09-11] MEDS: SODIUM CHLORIDE 0.9% 1000 ML IV ONE (05:01)
[2024-09-11] MEDS: CALCIUM CHLORIDE 10% 1 GM/10 ML SYR IV ONE (05:01)
[2024-09-11 06:22] LABS: HEMATOCRIT 26.9 % (42.0-52.0); HEMOGLOBIN 8.6 g/dl (13.5-17.5); MEAN CORPUSCULAR HEMOGLOBIN 26.7 pg (27.0-33.0); MEAN CORPUSCULAR VOLUME 83.5 fl (80.0-96.0); RED BLOOD COUNT 3.22 10^6/uL (4.30-6.10); WHITE BLOOD COUNT 17.9 10^3/uL (4.0-10.0)
[2024-09-11 06:27] LABS: PLATELET COUNT, AUTOMATED 240 10^3/uL (150-450)
[2024-09-11 07:59] LABS: HEMATOCRIT 28.1 % (42.0-52.0); HEMOGLOBIN 9.1 g/dl (13.5-17.5)
[2024-09-11 08:13] LABS: CALCIUM LEVEL 8.9 MG/DL (8.3-10.6); CREATININE FOR GFR 2.78 MG/DL (0.70-1.30); GLOMERULAR FILTRATION RATE 23.2 (>35); POTASSIUM SERUM 5.1 MMOL/L (3.5-5.1)
[2024-09-11 09:12] LABS: INR 1.67; PARTIAL THROMBOPLASTIN TIME 37.5 SECONDS (24.8-34.2); PROTHROMBIN TIME 19.9 SECONDS (12.5-14.5)
[2024-09-11 09:25] LABS: ABG BASE EXCESS -6.3 (-2.0-2.0); ABG HCO3 18.1 MMOL/L (22.0-26.0); ABG O2 SATURATION 97.7 % (95.0-99.0); ABG PARTIAL PRESSURE CO2 31.7 mmHg (35.0-45.0); ABG PARTIAL PRESSURE O2 138.7 mmHg (75.0-100.0); ABG STANDARD HCO3 19.2 MMOL/L. (22.0-26.0); ABG TOTAL CO2 19.1 MMOL/L (23.0-31.0); ABG pH (ARTERIAL) 7.374 UNITS (7.350-7.450)
[2024-09-11] MEDS: DARBEPOETIN 100MCG/0.5ML *NON-DIALYSIS* SYRINGE SC SCH (10:38)
[2024-09-11 11:24] LABS: HEMATOCRIT 26.7 % (42.0-52.0); HEMOGLOBIN 8.7 g/dl (13.5-17.5)
[2024-09-11] MEDS ORDERED: LR 1,000 ML IV ONE (11:35)
[2024-09-11] MEDS: SODIUM BICARBONATE 50 MEQ in NS 0.45% 1,000 ML IV SCH (11:39)
[2024-09-12] VITALS (32 sets, daily range): BP systolic 92–156; BP diastolic 51–70; TEMP 96.9–98.8; O2SAT 96–100
[2024-09-12] MEDS: MORPHINE 2 MG/ML 1ML VIAL IV ONE (04:22)
[2024-09-12 05:13] LABS: MEAN CORPUSCULAR HEMOGLOBIN 27.1 pg (27.0-33.0); MEAN CORPUSCULAR HGB CONC 32.7 g/dl (32.0-36.5); MEAN CORPUSCULAR VOLUME 82.9 fl (80.0-96.0); PLATELET COUNT, AUTOMATED 200 10^3/uL (150-450); WHITE BLOOD COUNT 12.8 10^3/uL (4.0-10.0)
[2024-09-12 05:19] LABS: HEMATOCRIT 19.9 % (42.0-52.0); HEMOGLOBIN 6.5 g/dl (13.5-17.5)
[2024-09-12 06:03] LABS: ALBUMIN 1.6 G/DL (3.2-5.2); BILIRUBIN,TOTAL 0.2 MG/DL (0.3-1.2); CALCIUM LEVEL 8.5 MG/DL (8.3-10.6); CREATININE FOR GFR 2.85 MG/DL (0.70-1.30); GLOMERULAR FILTRATION RATE 22.5 (>35); MAGNESIUM LEVEL 2.2 MG/DL (1.8-2.4); POTASSIUM SERUM 4.9 MMOL/L (3.5-5.1); TOTAL PROTEIN 4.3 G/DL (5.7-8.2)
[2024-09-12] MEDS ORDERED: MORPHINE 4 MG/ML 1ML VIAL As Ordered ONE (09:58)
[2024-09-12] MEDS: MORPHINE 4 MG/ML 1ML VIAL IV STA (10:01)
[2024-09-12 14:10] LABS: HEMATOCRIT 27.7 % (42.0-52.0); MEAN CORPUSCULAR HEMOGLOBIN 27.8 pg (27.0-33.0); MEAN CORPUSCULAR HGB CONC 32.5 g/dl (32.0-36.5); MEAN CORPUSCULAR VOLUME 85.5 fl (80.0-96.0); PLATELET COUNT, AUTOMATED 197 10^3/uL (150-450); RED BLOOD COUNT 3.24 10^6/uL (4.30-6.10); WHITE BLOOD COUNT 11.7 10^3/uL (4.0-10.0)
[2024-09-12] MEDS ORDERED: SODIUM CHLORIDE 0.9% INJ 10 ML SYR IV SCH (14:30)
[2024-09-12] MEDS ORDERED: SODIUM CHLORIDE 0.9% INJ 10 ML SYR IV PRN ×2 (14:30→14:55)
[2024-09-12] MEDS: SODIUM CHLORIDE 0.9% INJ 10 ML SYR IV SCH (15:00)
[2024-09-12] MEDS: MEROPENEM INJ 500 MG in IV 1 EA IV SCH (15:00)
[2024-09-12] MEDS: MORPHINE 2 MG/ML 1ML VIAL IV PRN (18:51)
[2024-09-12] MEDS: oxyCODONE 5MG TAB PO PRN (21:35)
[2024-09-13] VITALS (7 sets, daily range): BP systolic 111–156; BP diastolic 52–74; TEMP 97.4–99.9; O2SAT 95–97
[2024-09-13 04:53] LABS: HEMATOCRIT 25.2 % (42.0-52.0); HEMOGLOBIN 8.5 g/dl (13.5-17.5); MEAN CORPUSCULAR HEMOGLOBIN 28.4 pg (27.0-33.0); MEAN CORPUSCULAR HGB CONC 33.7 g/dl (32.0-36.5); MEAN CORPUSCULAR VOLUME 84.3 fl (80.0-96.0); PLATELET COUNT, AUTOMATED 202 10^3/uL (150-450); RED BLOOD COUNT 2.99 10^6/uL (4.30-6.10); WHITE BLOOD COUNT 10.2 10^3/uL (4.0-10.0)
[2024-09-13 05:16] LABS: ALBUMIN 1.6 G/DL (3.2-5.2); BILIRUBIN,TOTAL 0.2 MG/DL (0.3-1.2); CALCIUM LEVEL 8.1 MG/DL (8.3-10.6); CREATININE FOR GFR 2.28 MG/DL (0.70-1.30); GLOMERULAR FILTRATION RATE 29.1 (>35); MAGNESIUM LEVEL 2.2 MG/DL (1.8-2.4); TOTAL PROTEIN 4.5 G/DL (5.7-8.2)
[2024-09-13] MEDS ORDERED: ONDANSETRON 4MG 2ML VIAL IV PRN (17:45)
[2024-09-14 05:37] LABS: HEMATOCRIT 26.1 % (42.0-52.0); HEMOGLOBIN 8.5 g/dl (13.5-17.5); MEAN CORPUSCULAR HEMOGLOBIN 28.4 pg (27.0-33.0); MEAN CORPUSCULAR HGB CONC 32.6 g/dl (32.0-36.5); MEAN CORPUSCULAR VOLUME 87.3 fl (80.0-96.0); PLATELET COUNT, AUTOMATED 201 10^3/uL (150-450); RED BLOOD COUNT 2.99 10^6/uL (4.30-6.10); WHITE BLOOD COUNT 8.9 10^3/uL (4.0-10.0)
[2024-09-14 06:08] LABS: ALBUMIN 1.7 G/DL (3.2-5.2); BILIRUBIN,TOTAL 0.2 MG/DL (0.3-1.2); CALCIUM LEVEL 7.3 MG/DL (8.3-10.6); CREATININE FOR GFR 1.86 MG/DL (0.70-1.30); GLOMERULAR FILTRATION RATE 36.9 (>35); POTASSIUM SERUM 4.9 MMOL/L (3.5-5.1); TOTAL PROTEIN 4.7 G/DL (5.7-8.2)
[2024-09-14 07:14] VITALS: BP 145/65; TEMP 97.5; O2SAT 96
[2024-09-14 08:10] VITALS: BP 106/52
[2024-09-14 12:00] VITALS: BP 139/71; TEMP 97.5; O2SAT 96
[2024-09-14] MEDS: MEROPENEM INJ 1 GM in IV 1 EA IV SCH (13:56)
[2024-09-14 16:00] VITALS: BP 158/75; TEMP 97.9
[2024-09-14 20:05] VITALS: BP 171/78; TEMP 97.7; O2SAT 96
[2024-09-15] VITALS (10 sets, daily range): BP systolic 146–188; BP diastolic 66–86; TEMP 97.9–98.6; O2SAT 96–99
[2024-09-15 05:00] LABS: HEMATOCRIT 26.7 % (42.0-52.0); HEMOGLOBIN 8.6 g/dl (13.5-17.5); MEAN CORPUSCULAR HGB CONC 32.2 g/dl (32.0-36.5); PLATELET COUNT, AUTOMATED 213 10^3/uL (150-450); RED BLOOD COUNT 3.07 10^6/uL (4.30-6.10); WHITE BLOOD COUNT 9.1 10^3/uL (4.0-10.0)
[2024-09-15 05:31] LABS: ALBUMIN 1.8 G/DL (3.2-5.2); BILIRUBIN,TOTAL 0.2 MG/DL (0.3-1.2); CALCIUM LEVEL 8.2 MG/DL (8.3-10.6); CREATININE FOR GFR 1.65 MG/DL (0.70-1.30); GLOMERULAR FILTRATION RATE 42.3 (>35); POTASSIUM SERUM 4.9 MMOL/L (3.5-5.1); TOTAL PROTEIN 5.1 G/DL (5.7-8.2)
[2024-09-15] MEDS: MEROPENEM INJ 1 GM in IV 1 EA IV ONE ×2 (08:06→15:00)
[2024-09-15] MEDS: dilTIAZem 120MG **CD** CAPSULE PO SCH (08:45)
[2024-09-15] MEDS: FERROUS GLUCONATE 324 MG TAB PO SCH (10:45)
[2024-09-15] MEDS: LOPERAMIDE 2 MG CAPLET PO PRN (10:45)
[2024-09-15] MEDS ORDERED: DOXY100C3 PO ×2 (12:16→12:32)
[2024-09-15] MEDS ORDERED: CEFD1CAP9 PO (12:16)
[2024-09-15] MEDS ORDERED: PROBCAP14 PO (12:33)
[2024-09-15] MEDS: LACTOBACILLUS ACIDOPHILUS CAP (BACID) PO SCH (12:42)
[2024-09-15] MEDS: dilTIAZem 120MG **CD** CAPSULE PO STA (14:57)
[2024-09-15] MEDS: **hydrALAZINE** 10 MG TAB PO ONE (14:58)
[2024-09-15] MEDS ORDERED: **hydrALAZINE** 10 MG TAB PO SCH (21:00)
[2024-09-16] MEDS ORDERED: dilTIAZem 120MG **CD** CAPSULE PO SCH (09:00)
== END 2024-09-15 17:05 | disposition home health service (06) | DRG 177 ==
LOC: EDBD 08:39 → M ED 08:39 → EEVIPCON 11:57 → M ED INP 11:57 → M PCU 12:54 → M ICU 09-11 00:50
PROVIDERS: ADMIT Internal Medicine; ATTEND Student in an Organized Health Care Education/Training Program
PROC: B246ZZZ Ultrasonography of Right and Left Heart (ICD-10-PCS; principal; 2024-09-01)
PROC: 0W993ZX Drainage of Right Pleural Cavity, Percutaneous Approach, Diagnostic (ICD-10-PCS; 2024-09-02)
PROC: 30233J1 Transfusion of Nonautologous Serum Albumin into Peripheral Vein, Percutaneous Approach (ICD-10-PCS; 2024-09-06)
PROC: 30233N1 Transfusion of Nonautologous Red Blood Cells into Peripheral Vein, Percutaneous Approach (ICD-10-PCS; 2024-09-06)
PROC: 30233R1 Transfusion of Nonautologous Platelets into Peripheral Vein, Percutaneous Approach (ICD-10-PCS; 2024-09-06)
PROC: 30233K1 Transfusion of Nonautologous Frozen Plasma into Peripheral Vein, Percutaneous Approach (ICD-10-PCS; 2024-09-06)
PROC: 0W9930Z Drainage of Right Pleural Cavity with Drainage Device, Percutaneous Approach (ICD-10-PCS; 2024-09-07)
PROC: 3E0L3GC Introduction of Other Therapeutic Substance into Pleural Cavity, Percutaneous Approach (ICD-10-PCS; 2024-09-10)
DX: J86.9 Pyothorax without fistula (principal); I50.33 Acute on chronic diastolic (congestive) heart failure; E43 Unspecified severe protein-calorie malnutrition; J18.9 Pneumonia, unspecified organism; R57.8 Other shock; J96.01 Acute respiratory failure with hypoxia; J90 Pleural effusion, not elsewhere classified; N17.9 Acute kidney failure, unspecified; I13.0 Hypertensive heart and chronic kidney disease with heart failure and stage 1 through stage 4 chronic kidney disease, or unspecified chronic kidney disease; J98.11 Atelectasis; N18.4 Chronic kidney disease, stage 4 (severe); I48.92 Unspecified atrial flutter; G93.40 Encephalopathy, unspecified; I48.20 Chronic atrial fibrillation, unspecified; D62 Acute posthemorrhagic anemia; N39.0 Urinary tract infection, site not specified; E87.20 Acidosis, unspecified; J94.2 Hemothorax; I25.10 Atherosclerotic heart disease of native coronary artery without angina pectoris; E03.9 Hypothyroidism, unspecified; J44.9 Chronic obstructive pulmonary disease, unspecified; M48.061 Spinal stenosis, lumbar region without neurogenic claudication; K21.9 Gastro-esophageal reflux disease without esophagitis; M10.9 Gout, unspecified; D63.1 Anemia in chronic kidney disease; E83.42 Hypomagnesemia; D50.9 Iron deficiency anemia, unspecified; I73.9 Peripheral vascular disease, unspecified; M19.90 Unspecified osteoarthritis, unspecified site; G62.9 Polyneuropathy, unspecified; Z66 Do not resuscitate; B96.1 Klebsiella pneumoniae [K. pneumoniae] as the cause of diseases classified elsewhere; F03.90 Unspecified dementia, unspecified severity, without behavioral disturbance, psychotic disturbance, mood disturbance, and anxiety; Z85.51 Personal history of malignant neoplasm of bladder; Z85.46 Personal history of malignant neoplasm of prostate; Z86.73 Personal history of transient ischemic attack (TIA), and cerebral infarction without residual deficits; Z99.81 Dependence on supplemental oxygen; Z95.1 Presence of aortocoronary bypass graft; Z90.49 Acquired absence of other specified parts of digestive tract; Z79.82 Long term (current) use of aspirin; Z79.890 Hormone replacement therapy; Z79.899 Other long term (current) drug therapy; Z88.2 Allergy status to sulfonamides; Z88.8 Allergy status to other drugs, medicaments and biological substances; Z86.74 Personal history of sudden cardiac arrest; Z93.6 Other artificial openings of urinary tract status

== ENCOUNTER 2024-10-13 17:41 | Inpatient (IN) | payer MEDICARE, MEDICAID ==
[~2024-10-13] VITALS: Ht 188 cm; Wt 71.6 kg
[~2024-10-13 17:41] MED LIST changes: +AMIT10TA7 PO; +ATOR40TA75 PO; +B-12100010 PO; +BUSP10TA PO; +CEFD1CAP9 PO; +DILT240C83 PO; +DIPH1TAB81 PO; +DOXY100C3 PO; +ELIQ2.5T PO; +FAMO40TA3 PO; +FERR324T12 PO; +FLON1SPR; +IPRA0.00 INH; +LEVO100T5 PO; +MULT-90 PO; +PRAM1TAB7 PO; +PROBCAP14 PO; +VENTAER INH; +VIBE1TAB2 PO
[2024-10-13] MEDS ORDERED: ALBU2.5V10 INH (18:16)
[2024-10-13] MEDS ORDERED: D32000CA PO (18:16)
[2024-10-13] MEDS ORDERED: METO1TAB7 PO (18:16)
[2024-10-13] MEDS ORDERED: CLOT15CR4 TOP (18:16)
[2024-10-13] MEDS ORDERED: REFR0.5D8 OU (18:16)
[2024-10-13] MEDS ORDERED: FLUT1BLS8 IH (18:16)
[2024-10-13] MEDS ORDERED: FURO40TA2 PO (18:16)
[2024-10-13] MEDS ORDERED: DESI13CR2 TOP (18:18)
[2024-10-13] MEDS ORDERED: LOKE5PAK PO (18:21)
[2024-10-13] MEDS ORDERED: HOME MED LIST COMPLETE! XX SCH (19:25)
[2024-10-13 20:20] LABS: BASO % 0.2 % (0.0-1.0); EOS # 0.4 10^3/uL (0.0-0.5); EOS % 3.2 % (0.0-3.0); HEMATOCRIT 24.5 % (42.0-52.0); HEMOGLOBIN 7.6 g/dl (13.5-17.5); LYMPH # 1.3 10^3/uL (1.5-5.0); LYMPH % 11.4 % (24.0-44.0); MEAN CORPUSCULAR HEMOGLOBIN 28.5 pg (27.0-33.0); MEAN CORPUSCULAR VOLUME 91.8 fl (80.0-96.0); MONO # 0.8 10^3/uL (0.0-0.8); MONO % 6.7 % (2.0-8.0); NEUTROPHILS # 9.1 10^3/uL (1.5-8.5); NEUTROPHILS % 77.7 % (36.0-66.0); PLATELET COUNT, AUTOMATED 159 10^3/uL (150-450); RED BLOOD COUNT 2.67 10^6/uL (4.30-6.10); WHITE BLOOD COUNT 11.7 10^3/uL (4.0-10.0)
[2024-10-13 20:39] LABS: INR 1.26; PARTIAL THROMBOPLASTIN TIME 40.4 SECONDS (24.8-34.2); PROTHROMBIN TIME 16.1 SECONDS (12.5-14.5)
[2024-10-13 20:45] LABS: ALBUMIN 2.4 G/DL (3.2-5.2); ALKALINE PHOSPHATASE 99 U/L (40-129); ALT/SGPT 17 U/L (7.0-40); AST/SGOT 16 U/L (<34); BILIRUBIN,DIRECT < 0.1 MG/DL (<0.4); BILIRUBIN,TOTAL 0.2 MG/DL (0.3-1.2); BLOOD UREA NITROGEN 45 MG/DL (9-23); CALCIUM LEVEL 7.9 MG/DL (8.3-10.6); CARBON DIOXIDE LEVEL 20 MMOL/L (20-31); CHLORIDE LEVEL 112 MMOL/L (98-107); CPK CREATINE PHOSPHOKINASE 26 U/L (46-171); GLOMERULAR FILTRATION RATE 24.3 (>35); GLUCOSE, FASTING 100 MG/DL (74-106); MB/CK RELATIVE INDEX 7.69 (< OR =4); POTASSIUM SERUM 4.6 MMOL/L (3.5-5.1); SODIUM LEVEL 138 MMOL/L (136-145)
[2024-10-14] MEDS: NS (Normal Saline) 0.9% 1,000 ML IV SCH (01:30)
[2024-10-14] MEDS ORDERED: IPRATROPIUM 0.5MG/ALBUTEROL 2.5MG INH SOL UD 3ML INH PRN (01:35)
[2024-10-14] MEDS ORDERED: POLYVINYL ALCOHOL OPHTH SOLN 15ML (LIQUITEARS) OU PRN (01:35)
[2024-10-14] MEDS ORDERED: ALBUTEROL 90 MCG/ACT 8GM HFA INHALER INH PRN (01:35)
[2024-10-14] MEDS ORDERED: ACETAMINOPHEN 325 MG TAB PO PRN (01:35)
[2024-10-14 03:17] LABS: PROCALCITONIN 0.11 ng/ml
[2024-10-14] MEDS: ALBUTEROL SULFATE 2.5MG/0.5ML INH CONCENTRATE NEB SOLN INH SCH (04:15)
[2024-10-14] MEDS: LEVOTHYROXINE 100MCG TABLET (0.1MG) PO SCH (06:00)
[2024-10-14] MEDS: DOCUSATE SODIUM 100MG CAPSULE PO SCH (08:23)
[2024-10-14] MEDS: CYANOCOBALAMIN 500 MCG TAB PO SCH (08:23)
[2024-10-14] MEDS: APIXABAN 2.5 MG TAB (ELIQUIS) PO SCH (08:24)
[2024-10-14] MEDS: PANTOPRAZOLE 40MG TAB (PROTONIX) PO SCH (08:24)
[2024-10-14] MEDS: SUCRALFATE 1 GM TAB PO SCH (08:24)
[2024-10-14] MEDS: MULTIVITAMINS/MINERALS THERAP 1 TAB PO SCH (08:24)
[2024-10-14] MEDS: allopurinoL 100 MG TAB PO SCH (08:24)
[2024-10-14] MEDS: FERROUS SULFATE 325MG TAB PO SCH (08:25)
[2024-10-14] MEDS: dilTIAZem 120MG **CD** CAPSULE PO SCH (08:25)
[2024-10-14] MEDS: OYSTER SHELL CALCIUM 500 MG TAB PO SCH (08:25)
[2024-10-14] MEDS: METOPROLOL SUCC (TopROL XL) 50MG **XL** TAB PO SCH (08:27)
[2024-10-14] MEDS: BALMEX CREAM 60GM TOP SCH (08:32)
[2024-10-14] MEDS: VITAMIN D 1,000 INTERNATIONAL UNITS TABLET PO SCH (08:32)
[2024-10-14] MEDS: FLUTICASONE PROP 0.05% NASAL SPRAY 16 GM (FLONASE) SCH (08:33)
[2024-10-14] MEDS ORDERED: [UNRECOGNIZED DRUG - MIXTURE] INH SCH (09:00)
[2024-10-14] MEDS ORDERED: VIBERZI 100 MG PO SCH (09:00)
[2024-10-14 14:06] VITALS: BP 140/56; TEMP 98.1; O2SAT 100
[2024-10-14 16:02] LABS: ALBUMIN 2.6 G/DL (3.2-5.2); BILIRUBIN,TOTAL 0.2 MG/DL (0.3-1.2); CALCIUM LEVEL 7.9 MG/DL (8.3-10.6); CREATININE FOR GFR 2.07 MG/DL (0.70-1.30); GLOMERULAR FILTRATION RATE 30.4 (>35); POTASSIUM SERUM 4.3 MMOL/L (3.5-5.1); TOTAL PROTEIN 6.4 G/DL (5.7-8.2)
[2024-10-14 16:15] VITALS: BP 117/62; TEMP 97.7; O2SAT 94
[2024-10-14] MEDS: SODIUM CHLORIDE 0.9% INJ 10 ML SYR IV PRN (17:32)
[2024-10-14 20:00] VITALS: BP 125/62; TEMP 97.9; O2SAT 96
[2024-10-14 20:02] LABS: HEMATOCRIT 27.8 % (42.0-52.0); HEMOGLOBIN 8.6 g/dl (13.5-17.5); MEAN CORPUSCULAR HEMOGLOBIN 28.8 pg (27.0-33.0); MEAN CORPUSCULAR HGB CONC 30.9 g/dl (32.0-36.5); PLATELET COUNT, AUTOMATED 157 10^3/uL (150-450); RED BLOOD COUNT 2.99 10^6/uL (4.30-6.10); WHITE BLOOD COUNT 13.1 10^3/uL (4.0-10.0)
[2024-10-14] MEDS: LOMOTIL 2.5MG/0.025MG TABLET PO PRN (21:31)
[2024-10-14] MEDS: AMITRIPTYLINE 10MG TABLET PO SCH (21:31)
[2024-10-14] MEDS: PRAMIPEXOLE 1 MG TAB PO SCH (21:32)
[2024-10-14] MEDS: ATORVASTATIN 20 MG TAB PO SCH (21:32)
[2024-10-14 21:58] LABS: CALCIUM LEVEL 7.5 MG/DL (8.3-10.6); CREATININE FOR GFR 2.07 MG/DL (0.70-1.30); GLOMERULAR FILTRATION RATE 30.4 (>35); POTASSIUM SERUM 4.3 MMOL/L (3.5-5.1)
[2024-10-15] VITALS: BP 128/60; TEMP 98.1; O2SAT 95
[2024-10-15 04:10] VITALS: BP 146/65; TEMP 98.6; O2SAT 96
[2024-10-15 06:17] LABS: HEMATOCRIT 24.1 % (42.0-52.0); HEMOGLOBIN 7.4 g/dl (13.5-17.5); MEAN CORPUSCULAR HEMOGLOBIN 27.9 pg (27.0-33.0); MEAN CORPUSCULAR HGB CONC 30.7 g/dl (32.0-36.5); MEAN CORPUSCULAR VOLUME 90.9 fl (80.0-96.0); PLATELET COUNT, AUTOMATED 164 10^3/uL (150-450); RED BLOOD COUNT 2.65 10^6/uL (4.30-6.10); WHITE BLOOD COUNT 8.5 10^3/uL (4.0-10.0)
[2024-10-15 06:54] LABS: ALBUMIN 2.1 G/DL (3.2-5.2); BILIRUBIN,TOTAL 0.2 MG/DL (0.3-1.2); CALCIUM LEVEL 7.7 MG/DL (8.3-10.6); CREATININE FOR GFR 2.03 MG/DL (0.70-1.30); GLOMERULAR FILTRATION RATE 31.2 (>35); MAGNESIUM LEVEL 1.2 MG/DL (1.8-2.4); POTASSIUM SERUM 4.4 MMOL/L (3.5-5.1); TOTAL PROTEIN 5.6 G/DL (5.7-8.2)
[2024-10-15 07:52] VITALS: BP 141/73
[2024-10-15] MEDS: SODIUM CHLORIDE 0.9% INJ 10 ML SYR IV SCH (07:55)
[2024-10-15 08:00] VITALS: BP 144/74; TEMP 98.2; O2SAT 96
[2024-10-15] MEDS: IPRATROPIUM 0.5MG/ALBUTEROL 2.5MG INH SOL UD 3ML NEB PRN (08:30)
[2024-10-15 12:00] VITALS: BP 153/72; TEMP 98.1; O2SAT 96
[2024-10-15] MEDS: LR 1,000 ML IV ONE (12:37)
== END 2024-10-15 14:52 | disposition home or self-care (01) | DRG 187 ==
LOC: EDBD 17:41 → M ED 17:41 → M ED INP 23:51 → M MSPAV 10-14 14:06
PROVIDERS: ADMIT Family Medicine; ATTEND Student in an Organized Health Care Education/Training Program
DX: J90 Pleural effusion, not elsewhere classified (principal); N17.9 Acute kidney failure, unspecified; J96.11 Chronic respiratory failure with hypoxia; J98.11 Atelectasis; Z66 Do not resuscitate; I25.10 Atherosclerotic heart disease of native coronary artery without angina pectoris; I48.91 Unspecified atrial fibrillation; J44.9 Chronic obstructive pulmonary disease, unspecified; I12.9 Hypertensive chronic kidney disease with stage 1 through stage 4 chronic kidney disease, or unspecified chronic kidney disease; K21.9 Gastro-esophageal reflux disease without esophagitis; E03.9 Hypothyroidism, unspecified; N18.9 Chronic kidney disease, unspecified; M10.9 Gout, unspecified; M48.061 Spinal stenosis, lumbar region without neurogenic claudication; D63.8 Anemia in other chronic diseases classified elsewhere; M19.90 Unspecified osteoarthritis, unspecified site; I73.9 Peripheral vascular disease, unspecified; Z85.51 Personal history of malignant neoplasm of bladder; Z85.46 Personal history of malignant neoplasm of prostate; Z86.74 Personal history of sudden cardiac arrest; Z90.49 Acquired absence of other specified parts of digestive tract; Z90.79 Acquired absence of other genital organ(s); Z79.01 Long term (current) use of anticoagulants; Z79.82 Long term (current) use of aspirin; Z79.890 Hormone replacement therapy; Z79.899 Other long term (current) drug therapy; Z88.2 Allergy status to sulfonamides; Z88.8 Allergy status to other drugs, medicaments and biological substances; Z91.018 Allergy to other foods; Z86.73 Personal history of transient ischemic attack (TIA), and cerebral infarction without residual deficits; Z99.81 Dependence on supplemental oxygen; Z87.891 Personal history of nicotine dependence

== ENCOUNTER → 2024-10-20 | Outpatient (REF) | payer MEDICARE, MEDICAID ==
[~2024-10-20] MED LIST changes: +CLOT15CR4 TOP; +D32000CA PO; +DESI13CR2 TOP; +FLUT1BLS8 IH; +FURO40TA2 PO; +LOKE5PAK PO; +METO1TAB7 PO
== END ==
LOC: M LAB REF 17:00
PROVIDERS: ATTEND Internal Medicine Nephrology
DX: D50.9 Iron deficiency anemia, unspecified (principal)

== ENCOUNTER 2024-10-25 14:25 | Inpatient (IN) | payer MEDICARE, MEDICAID ==
[~2024-10-25] VITALS: Ht 188 cm; Wt 67.9 kg
[2024-10-25 14:58] LABS: BASO % 0.5 % (0.0-1.0); EOS # 0.5 10^3/uL (0.0-0.5); EOS % 5.7 % (0.0-3.0); HEMATOCRIT 29.8 % (42.0-52.0); HEMOGLOBIN 9.3 g/dl (13.5-17.5); LYMPH # 1.1 10^3/uL (1.5-5.0); LYMPH % 14.6 % (24.0-44.0); MEAN CORPUSCULAR HEMOGLOBIN 28.5 pg (27.0-33.0); MEAN CORPUSCULAR HGB CONC 31.2 g/dl (32.0-36.5); MEAN CORPUSCULAR VOLUME 91.4 fl (80.0-96.0); MONO # 0.7 10^3/uL (0.0-0.8); MONO % 8.6 % (2.0-8.0); NEUTROPHILS # 5.5 10^3/uL (1.5-8.5); NEUTROPHILS % 70.3 % (36.0-66.0); PLATELET COUNT, AUTOMATED 279 10^3/uL (150-450); RED BLOOD COUNT 3.26 10^6/uL (4.30-6.10); WHITE BLOOD COUNT 7.8 10^3/uL (4.0-10.0)
[2024-10-25 15:28] LABS: ALKALINE PHOSPHATASE 100 U/L (40-129); ALT/SGPT 27 U/L (7.0-40); AST/SGOT 23 U/L (<34); BILIRUBIN,DIRECT < 0.1 MG/DL (<0.4); BILIRUBIN,TOTAL 0.2 MG/DL (0.3-1.2); BLOOD UREA NITROGEN 101 MG/DL (9-23); CALCIUM LEVEL 7.7 MG/DL (8.3-10.6); CARBON DIOXIDE LEVEL 15 MMOL/L (20-31); CHLORIDE LEVEL 108 MMOL/L (98-107); CREATININE FOR GFR 2.88 MG/DL (0.70-1.30); GLOMERULAR FILTRATION RATE 20.5 (>35); GLUCOSE, FASTING 113 MG/DL (74-106); POTASSIUM SERUM 5.8 MMOL/L (3.5-5.1); SODIUM LEVEL 137 MMOL/L (136-145); TOTAL PROTEIN 6.7 G/DL (5.7-8.2)
[2024-10-25 15:30] LABS: FREE T4 1.08 NG/DL (0.89-1.76); LIPASE 19 U/L (12-53); THYROID STIMULATING HORMONE 3.997 uIU/ML (0.55-4.78)
[2024-10-25] MEDS: PATIROMER SORBITEX CALCIUM 8.4 GM POWDER PACKET (VELTASSA) PO ONE (15:55)
[2024-10-25] MEDS: HumuLIN R (REGULAR) INSULIN (NovoLIN R) **100U/ML** PER UNIT IV ONE (15:55)
[2024-10-25] MEDS: ONDANSETRON 4MG 2ML VIAL IV ONE (15:55)
[2024-10-25] MEDS: DEXTROSE 50% 50ML SYRINGE IV ONE (15:55)
[2024-10-25] MEDS: SODIUM BICARBONATE 8.4% INJ 50ML SYRINGE IV ONE (15:56)
[2024-10-25] MEDS: CALCIUM GLUCONATE 1,000MG/10ML VIAL (100MG/ML) IV ONE (15:56)
[2024-10-25 16:26] LABS: KETONE, URINE AUTO RFX NEGATIVE (NEGATIVE); NITRITE, URINE AUTO RFX NEGATIVE (NEGATIVE); RBC, URINE AUTO RFX 3 /HPF (0-3); SQUAM EPITHELIAL CELL UR AURFX 0 /HPF (0-6)
[2024-10-25 16:27] LABS: LEUKOCYTE ESTERASE UR AUTO RFX 3+ (NEGATIVE); WBC, URINE AUTO RFX 64 /HPF (0-3)
[2024-10-25 17:10] LABS: CK-MB VALUE MASS 1.7 NG/ML (<3.6)
[2024-10-25 17:11] LABS: CPK CREATINE PHOSPHOKINASE 41 U/L (46-171); MB/CK RELATIVE INDEX 4.14 (< OR =4)
[2024-10-25] MEDS: cefTRIAXone SOD 2 GM in DEXTROSE 5% (D5W) ADV/MINI-BAG 50 ML IV ONE (18:03)
[2024-10-25 18:07] LABS: CALCIUM LEVEL 8.1 MG/DL (8.3-10.6); CREATININE FOR GFR 2.9 MG/DL (0.70-1.30); GLOMERULAR FILTRATION RATE 20.3 (>35); POTASSIUM SERUM 5.5 MMOL/L (3.5-5.1)
[2024-10-25] MEDS ORDERED: MOM 30ML SUSPENSION UDC PO PRN (18:25)
[2024-10-25] MEDS ORDERED: MAALOX 30 ML SUSP *UDC PO PRN (18:25)
[2024-10-25] MEDS ORDERED: DEXTROSE 50% 50ML SYRINGE IV PRN (18:25)
[2024-10-25] MEDS ORDERED: GLUCOSE 4 GM CHEW PO PRN (18:25)
[2024-10-25] MEDS ORDERED: GLUCAGON INJ 1MG VIAL SC PRN (18:25)
[2024-10-25] MEDS ORDERED: SODI325T9 PO (19:29)
[2024-10-25] MEDS ORDERED: BUDE0.5S6 INH (19:29)
[2024-10-25] MEDS ORDERED: FAMO40TA3 PO (19:29)
[2024-10-25] MEDS ORDERED: HOME MED LIST COMPLETE! XX SCH (19:30)
[2024-10-25] MEDS: ALBUTEROL SULFATE 2.5MG/0.5ML INH CONCENTRATE NEB SOLN NEB ONE (19:55)
[2024-10-25 22:30] VITALS: BP 168/72; TEMP 102.7; O2SAT 96
[2024-10-25] MEDS: ACETAMINOPHEN 325 MG TAB PO PRN (22:44)
[2024-10-25] MEDS: SODIUM BICARBONATE 325 MG TAB PO SCH (22:44)
[2024-10-25] MEDS: APIXABAN 2.5 MG TAB (ELIQUIS) PO SCH (22:45)
[2024-10-25 22:46] LABS: CREATININE FOR GFR 2.78 MG/DL (0.70-1.30); GLOMERULAR FILTRATION RATE 21.4 (>35); POTASSIUM SERUM 5.1 MMOL/L (3.5-5.1)
[2024-10-25 23:52] VITALS: TEMP 102.3
[2024-10-26] VITALS (9 sets, daily range): BP systolic 120–150; BP diastolic 48–75; TEMP 97.2–100.7; O2SAT 94–100
[2024-10-26] MEDS: SODIUM CHLORIDE 0.9% 1000 ML IV SCH (02:00)
[2024-10-26] MEDS: CEFEPIME HCL 1 GM in DEXTROSE 5% (D5W) ADV/MINI-BAG 50 ML IV SCH (02:11)
[2024-10-26 03:08] LABS: C REACTIVE PROTEIN QUANTITATIV 1.26 MG/DL (<1.0)
[2024-10-26 03:53] LABS: PROCALCITONIN 0.16 ng/ml
[2024-10-26 05:42] LABS: CALCIUM LEVEL 7.6 MG/DL (8.3-10.6); CREATININE FOR GFR 2.69 MG/DL (0.70-1.30); GLOMERULAR FILTRATION RATE 22.2 (>35); MAGNESIUM LEVEL 1.2 MG/DL (1.8-2.4); POTASSIUM SERUM 4.6 MMOL/L (3.5-5.1)
[2024-10-26] MEDS: MAG SULF 1GM/100ML (MAG RUN) 1 GM in IV 1 EA IV ONE ×2 (07:02→09:24)
[2024-10-26] MEDS: MAGNESIUM OXIDE 400MG TAB (MAG-OX) PO ONE (07:03)
[2024-10-26] MEDS: PANTOPRAZOLE 40MG TAB (PROTONIX) PO SCH (09:23)
[2024-10-26] MEDS: SUCRALFATE 1 GM TAB PO SCH (09:23)
[2024-10-26] MEDS: METOPROLOL SUCC (TopROL XL) 50MG **XL** TAB PO SCH (09:23)
[2024-10-26] MEDS: SODIUM BICARBONATE 75 MEQ in NS 0.45% 1,000 ML IV SCH (11:42)
[2024-10-26 11:45] LABS: PERCENT SATURATION 5.4 % (19.7-50.0)
[2024-10-26] MEDS: SODIUM BICARBONATE 325 MG TAB PO SCH (15:22)
[2024-10-26] MEDS: VANICREAM MOISTURIZING SKIN CREAM 113GM TUBE TOP SCH (15:23)
[2024-10-26] MEDS ORDERED: cefTRIAXone SOD 1 GM in DEXTROSE 5% (D5W) ADV/MINI-BAG 50 ML IV SCH (18:00)
[2024-10-26] MEDS: MAGNESIUM OXIDE 400MG TAB (MAG-OX) PO SCH (19:27)
[2024-10-26 20:47] LABS: BASO % 0.4 % (0.0-1.0); EOS # 0.4 10^3/uL (0.0-0.5); EOS % 5.1 % (0.0-3.0); HEMATOCRIT 31.7 % (42.0-52.0); LYMPH # 1.6 10^3/uL (1.5-5.0); MEAN CORPUSCULAR HEMOGLOBIN 28.9 pg (27.0-33.0); MEAN CORPUSCULAR HGB CONC 31.5 g/dl (32.0-36.5); MEAN CORPUSCULAR VOLUME 91.6 fl (80.0-96.0); MONO # 0.5 10^3/uL (0.0-0.8); NEUTROPHILS # 5.9 10^3/uL (1.5-8.5); NEUTROPHILS % 69.3 % (36.0-66.0); PLATELET COUNT, AUTOMATED 264 10^3/uL (150-450); RED BLOOD COUNT 3.46 10^6/uL (4.30-6.10); WHITE BLOOD COUNT 8.6 10^3/uL (4.0-10.0)
[2024-10-26 20:56] LABS: INR 1.27; PROTHROMBIN TIME 16.2 SECONDS (12.5-14.5)
[2024-10-26 21:15] LABS: ALBUMIN 2.5 G/DL (3.2-5.2); ALKALINE PHOSPHATASE 112 U/L (40-129); ALT/SGPT 20 U/L (7.0-40); AST/SGOT 15 U/L (<34); BILIRUBIN,DIRECT < 0.1 MG/DL (<0.4); BILIRUBIN,TOTAL 0.2 MG/DL (0.3-1.2); BLOOD UREA NITROGEN 84 MG/DL (9-23); CARBON DIOXIDE LEVEL 21 MMOL/L (20-31); CHLORIDE LEVEL 112 MMOL/L (98-107); GLOMERULAR FILTRATION RATE 25.5 (>35); GLUCOSE, FASTING 114 MG/DL (74-106); MAGNESIUM LEVEL 1.8 MG/DL (1.8-2.4); POTASSIUM SERUM 4.6 MMOL/L (3.5-5.1); SODIUM LEVEL 144 MMOL/L (136-145)
[2024-10-26 21:16] LABS: TOTAL PROTEIN 6.1 G/DL (5.7-8.2)
[2024-10-26 22:54] LABS: VENOUS BASE EXCESS -6.3 (-2.0-2.0); VENOUS O2 SATURATION 96.1 % (60.0-80.0); VENOUS PARTIAL PRESSURE CO2 36.6 mmHg (38.0-50.0); VENOUS PARTIAL PRESSURE O2 97.9 mmHg (30.0-50.0); VENOUS PH 7.332 UNITS (7.330-7.430); VENOUS STANDARD HCO3 19.2 MMOL/L; VENOUS TOTAL CO2 20.1 MMOL/L (24.0-28.0)
[2024-10-27] VITALS (8 sets, daily range): BP systolic 159–190; BP diastolic 77–90; TEMP 97.5–99; O2SAT 98–100
[2024-10-27] MEDS: LOPERAMIDE 2 MG CAPLET PO ONE (01:28)
[2024-10-27] MEDS: LACTOBACILLUS ACIDOPHILUS CAP (BACID) PO SCH (08:00)
[2024-10-27] MEDS: SODIUM CHLORIDE 0.9% INJ 10 ML SYR IV SCH (08:01)
[2024-10-27 09:09] LABS: CREATININE FOR GFR 2.06 MG/DL (0.70-1.30); GLOMERULAR FILTRATION RATE 30.6 (>35); MAGNESIUM LEVEL 1.6 MG/DL (1.8-2.4); POTASSIUM SERUM 4.3 MMOL/L (3.5-5.1)
[2024-10-27 09:16] LABS: HEMATOCRIT 29.5 % (42.0-52.0); HEMOGLOBIN 9.3 g/dl (13.5-17.5); MEAN CORPUSCULAR HEMOGLOBIN 28.9 pg (27.0-33.0); MEAN CORPUSCULAR HGB CONC 31.5 g/dl (32.0-36.5); MEAN CORPUSCULAR VOLUME 91.6 fl (80.0-96.0); PLATELET COUNT, AUTOMATED 239 10^3/uL (150-450); RED BLOOD COUNT 3.22 10^6/uL (4.30-6.10); WHITE BLOOD COUNT 7.9 10^3/uL (4.0-10.0)
[2024-10-27] MEDS: MAG SULF 1GM/100ML (MAG RUN) 1 GM in IV 1 EA IV SCH (10:35)
[2024-10-27] MEDS: MEROPENEM INJ 1 GM in IV 1 EA IV SCH (12:44)
[2024-10-27] MEDS: FERRIC CARBOXYMALTOSE INJ 750 MG, VIAL MATE ADAPTER 1 EACH in NS 100 ML IV ONE (16:06)
[2024-10-27] MEDS ORDERED: **hydrALAZINE** 10 MG TAB PO PRN (18:55)
[2024-10-27] MEDS: METOPROLOL TART 25 MG TABLET PO SCH (19:07)
[2024-10-28] MEDS: SODIUM CHLORIDE 0.9% INJ 10 ML SYR IV PRN (00:30)
[2024-10-28] MEDS: RAMELTEON 8 MG TAB (ROZEREM) PO PRN (02:03)
[2024-10-28 04:45] VITALS: BP 141/74; TEMP 97.7; O2SAT 96
[2024-10-28 08:25] LABS: CALCIUM LEVEL 8.1 MG/DL (8.3-10.6); CREATININE FOR GFR 1.61 MG/DL (0.70-1.30); GLOMERULAR FILTRATION RATE 41.1 (>35); MAGNESIUM LEVEL 1.9 MG/DL (1.8-2.4); POTASSIUM SERUM 4.1 MMOL/L (3.5-5.1)
[2024-10-28] MEDS ORDERED: ERTAPENEM SODIUM 1 GM in NS MINI-BAG PLUS 50 ML IV SCH (09:00)
[2024-10-28 09:01] VITALS: BP 150/78
[2024-10-28] MEDS: ERTAPENEM SODIUM 500 MG in NS 50 ML IV SCH (11:50)
[2024-10-28] MEDS ORDERED: SODI325T9 PO (11:57)
[2024-10-28] MEDS ORDERED: RISATAB3 PO (11:57)
[2024-10-28 12:00] VITALS: BP 167/84; TEMP 97.7; O2SAT 99
[2024-10-28] MEDS ORDERED: ERTAPENEM SODIUM 500 MG in NS 50 ML IV SCH (12:00)
== END 2024-10-28 13:54 | disposition home or self-care (01) | DRG 683 ==
LOC: M ED 14:25 → EDBD 14:25 → M ED INP 18:24 → M MSPAV 22:22
PROVIDERS: ADMIT Student in an Organized Health Care Education/Training Program; ATTEND Student in an Organized Health Care Education/Training Program
DX: N17.9 Acute kidney failure, unspecified (principal); N39.0 Urinary tract infection, site not specified; I13.0 Hypertensive heart and chronic kidney disease with heart failure and stage 1 through stage 4 chronic kidney disease, or unspecified chronic kidney disease; E87.20 Acidosis, unspecified; G93.40 Encephalopathy, unspecified; I48.91 Unspecified atrial fibrillation; I25.10 Atherosclerotic heart disease of native coronary artery without angina pectoris; K21.9 Gastro-esophageal reflux disease without esophagitis; E03.9 Hypothyroidism, unspecified; G62.9 Polyneuropathy, unspecified; M10.9 Gout, unspecified; J44.9 Chronic obstructive pulmonary disease, unspecified; M48.061 Spinal stenosis, lumbar region without neurogenic claudication; M19.90 Unspecified osteoarthritis, unspecified site; N18.9 Chronic kidney disease, unspecified; E87.6 Hypokalemia; E83.42 Hypomagnesemia; D64.9 Anemia, unspecified; I50.9 Heart failure, unspecified; R41.82 Altered mental status, unspecified; R47.81 Slurred speech; B96.1 Klebsiella pneumoniae [K. pneumoniae] as the cause of diseases classified elsewhere; K52.9 Noninfective gastroenteritis and colitis, unspecified; E87.5 Hyperkalemia; G47.00 Insomnia, unspecified; Z85.46 Personal history of malignant neoplasm of prostate; Z79.01 Long term (current) use of anticoagulants; Z79.899 Other long term (current) drug therapy; Z86.74 Personal history of sudden cardiac arrest; Z85.51 Personal history of malignant neoplasm of bladder; Z88.2 Allergy status to sulfonamides; Z88.8 Allergy status to other drugs, medicaments and biological substances; Z90.49 Acquired absence of other specified parts of digestive tract; Z95.1 Presence of aortocoronary bypass graft; Z93.6 Other artificial openings of urinary tract status

== ENCOUNTER 2025-03-17 09:56 | Emergency (ER) | payer MEDICARE, MEDICAID ==
[~2025-03-17] VITALS: Ht 188 cm; Wt 81.8 kg
[~2025-03-17 09:56] MED LIST changes: +AMIT10TA11 PO; -AMIT10TA7 PO; +BUDE0.5S6 INH; -FLUT1BLS8 IH; +FLUT1BLS8 INH; +LOKE10PA PO; +METO1TAB87 PO; +MIDO10TA3 PO; +RISATAB3 PO; +SODI325T9 PO
[2025-03-17] MEDS: HEPARIN LOCK FLUSH 100 UNITS/ML 3 ML SYRINGE IV PRN (10:50)
[2025-03-17] MEDS: SODIUM CHLORIDE 0.9% INJ 10 ML SYR IV PRN (10:50)
[2025-03-17 11:02] LABS: VENOUS PH 7.333 UNITS (7.330-7.430)
[2025-03-17 11:03] LABS: VENOUS BASE EXCESS 1.7 (-2.0-2.0); VENOUS HCO3 28.0 MMOL/L (23.0-27.0); VENOUS O2 SATURATION 78.5 % (60.0-80.0); VENOUS PARTIAL PRESSURE CO2 54.0 mmHg (38.0-50.0); VENOUS PARTIAL PRESSURE O2 48.8 mmHg (30.0-50.0); VENOUS STANDARD HCO3 25.7 MMOL/L; VENOUS TOTAL CO2 29.7 MMOL/L (24.0-28.0)
[2025-03-17 11:08] LABS: BASO # 0.0 10^3/uL (0.0-0.2); BASO % 0.3 % (0.0-1.0); EOS # 0.4 10^3/uL (0.0-0.5); EOS % 5.1 % (0.0-3.0); LYMPH # 1.6 10^3/uL (1.5-5.0); LYMPH % 23.6 % (24.0-44.0); MONO # 0.7 10^3/uL (0.0-0.8); MONO % 10.4 % (2.0-8.0); NEUTROPHILS # 4.2 10^3/uL (1.5-8.5); NEUTROPHILS % 60.3 % (36.0-66.0); PLATELET COUNT, AUTOMATED 171 10^3/uL (150-450)
[2025-03-17 11:42] LABS: CALCIUM LEVEL 7.4 MG/DL (8.3-10.6); CARBON DIOXIDE LEVEL 28.0 MMOL/L (20-31); CHLORIDE LEVEL 102.0 MMOL/L (98-107); CREATININE FOR GFR 4.37 MG/DL (0.70-1.30); GLOMERULAR FILTRATION RATE 12.4 (>35); POTASSIUM SERUM 4.2 MMOL/L (3.5-5.1); SODIUM LEVEL 140.0 MMOL/L (136-145)
[2025-03-17 14:00] VITALS: BP 146/65; O2SAT 93
[2025-03-17 14:05] VITALS: TEMP 97.4
[2025-03-18] MEDS ORDERED: LEVA1.2526 INH (10:19)
== END 2025-03-17 14:14 | disposition home or self-care (01) ==
LOC: M ED 09:56
DX: N18.6 End stage renal disease (principal); R53.83 Other fatigue; I48.91 Unspecified atrial fibrillation; I25.119 Atherosclerotic heart disease of native coronary artery with unspecified angina pectoris; I50.22 Chronic systolic (congestive) heart failure; J44.9 Chronic obstructive pulmonary disease, unspecified; Z87.891 Personal history of nicotine dependence; Z88.1 Allergy status to other antibiotic agents; Z88.2 Allergy status to sulfonamides; Z88.8 Allergy status to other drugs, medicaments and biological substances; Z79.51 Long term (current) use of inhaled steroids; Z79.01 Long term (current) use of anticoagulants; Z79.899 Other long term (current) drug therapy; Z79.810 Long term (current) use of selective estrogen receptor modulators (SERMs)

== ENCOUNTER 2025-03-17 19:25 | Inpatient (IN) | payer MEDICARE, MEDICAID ==
[~2025-03-17] VITALS: Ht 188 cm; Wt 80.0 kg
[2025-03-17 20:37] LABS: VENOUS BASE EXCESS 3.2 (-2.0-2.0); VENOUS HCO3 29.6 MMOL/L (23.0-27.0); VENOUS O2 SATURATION 55.1 % (60.0-80.0); VENOUS PARTIAL PRESSURE CO2 54.7 mmHg (38.0-50.0); VENOUS PARTIAL PRESSURE O2 31.6 mmHg (30.0-50.0); VENOUS PH 7.351 UNITS (7.330-7.430); VENOUS STANDARD HCO3 26.5 MMOL/L; VENOUS TOTAL CO2 31.3 MMOL/L (24.0-28.0)
[2025-03-17 20:41] LABS: BASO # 0.0 10^3/uL (0.0-0.2); BASO % 0.2 % (0.0-1.0); EOS # 0.2 10^3/uL (0.0-0.5); EOS % 1.4 % (0.0-3.0); LYMPH # 1.7 10^3/uL (1.5-5.0); LYMPH % 13.7 % (24.0-44.0); MONO # 0.7 10^3/uL (0.0-0.8); MONO % 5.3 % (2.0-8.0); NEUTROPHILS # 9.8 10^3/uL (1.5-8.5); NEUTROPHILS % 79.1 % (36.0-66.0); PLATELET COUNT, AUTOMATED 179 10^3/uL (150-450)
[2025-03-17 20:50] LABS: INR 1.1
[2025-03-17 20:56] LABS: AMORPHOUS SEDIMENT SMALL (NEGATIVE); APPEARANCE, URINE CLOUDY (CLEAR); BACTERIA, URINE AUTO 2+ (NEGATIVE); BILIRUBIN, URINE AUTO NEGATIVE (NEGATIVE); BLOOD, URINE BLOOD 1+ (NEGATIVE); GLUCOSE, URINE (UA) AUTO NEGATIVE (NEGATIVE); KETONE, URINE AUTO NEGATIVE (NEGATIVE); LEUKOCYTE ESTERASE, URINE AUTO 2+ (NEGATIVE); MUCUS, URINE SMALL (NEGATIVE); NITRITE, URINE AUTO NEGATIVE (NEGATIVE); PROTEIN, URINE AUTO 2+ mg/dL (NEGATIVE); RBC, URINE AUTO 20 /HPF (0-3); SPECIFIC GRAVITY URINE AUTO 1.011 (1.002-1.035); SQUAMOUS EPITHELIAL CELL UR AU 1 /HPF (0-6); UROBILINOGEN, URINE AUTO 2.0 mg/dL (0.0-2.0); WBC, URINE AUTO 136 /HPF (0-3)
[2025-03-17] MEDS: ACETAMINOPHEN 325 MG TAB PO ONE (20:59)
[2025-03-17 21:06] LABS: CK-MB VALUE MASS 2.1 NG/ML (<3.6)
[2025-03-17 21:08] LABS: C REACTIVE PROTEIN QUANTITATIV 1.62 MG/DL (<1.0)
[2025-03-17 21:16] LABS: ALT/SGPT 20.0 U/L (7.0-40); AST/SGOT 31.0 U/L (<34); CALCIUM LEVEL 7.9 MG/DL (8.3-10.6); CARBON DIOXIDE LEVEL 30.0 MMOL/L (20-31); CHLORIDE LEVEL 98.0 MMOL/L (98-107); CPK CREATINE PHOSPHOKINASE 56.0 U/L (46-171); CREATININE FOR GFR 2.14 MG/DL (0.70-1.30); GLOMERULAR FILTRATION RATE 29.2 (>35); MB/CK RELATIVE INDEX 3.75 (< OR =4); POTASSIUM SERUM 3.5 MMOL/L (3.5-5.1); SODIUM LEVEL 137.0 MMOL/L (136-145)
[2025-03-17] MEDS: NS (Normal Saline) 0.9% 1,000 ML IV STA (22:12)
[2025-03-17] MEDS: PIPERACILLIN/TAZOBACTAM SOD 3.375 GM in DEXTROSE 5% (D5W) ADV/MINI-BAG 50 ML IV ONE (22:13)
[2025-03-18] MEDS ORDERED: ACETAMINOPHEN 325 MG TAB PO PRN (00:45)
[2025-03-18] MEDS: NS (Normal Saline) 0.9% 1,000 ML IV SCH (00:45)
[2025-03-18 01:25] LABS: CK-MB VALUE MASS 1.3 NG/ML (<3.6); CPK CREATINE PHOSPHOKINASE 59.0 U/L (46-171); MB/CK RELATIVE INDEX 2.2 (< OR =4)
[2025-03-18 02:01] VITALS: BP 139/64; TEMP 97.7; O2SAT 99
[2025-03-18 04:58] VITALS: BP 117/44; TEMP 97.2; O2SAT 99
[2025-03-18] MEDS: PIPERACILLIN/TAZOBACTAM SOD 4.5 GM in DEXTROSE 5% (D5W) ADV/MINI-BAG 50 ML IV SCH (05:20)
[2025-03-18 05:54] LABS: PLATELET COUNT, AUTOMATED 135 10^3/uL (150-450)
[2025-03-18 06:04] LABS: ALT/SGPT 11.0 U/L (7.0-40); AST/SGOT 18.0 U/L (<34); CALCIUM LEVEL 7.0 MG/DL (8.3-10.6); CARBON DIOXIDE LEVEL 30.0 MMOL/L (20-31); CHLORIDE LEVEL 105.0 MMOL/L (98-107); CREATININE FOR GFR 2.52 MG/DL (0.70-1.30); GLOMERULAR FILTRATION RATE 24.0 (>35); MAGNESIUM LEVEL 1.7 MG/DL (1.8-2.4); POTASSIUM SERUM 3.4 MMOL/L (3.5-5.1); SODIUM LEVEL 142.0 MMOL/L (136-145)
[2025-03-18 08:00] VITALS: BP 117/46; TEMP 97.2; O2SAT 97
[2025-03-18] MEDS ORDERED: ALBUTEROL SULFATE 2.5 MG/0.5 ML INH CONCENTRATE NEB SOLN NEB PRN (08:10)
[2025-03-18] MEDS: SODIUM CHLORIDE 0.9% INJ 10 ML SYR IV SCH (09:00)
[2025-03-18] MEDS: HEPARIN LOCK FLUSH 100 UNITS/ML 3 ML SYRINGE IV SCH (09:00)
[2025-03-18] MEDS: MEROPENEM 500 MG in IV 1 EA IV SCH (09:55)
[2025-03-18] MEDS ORDERED: LEVA1.2526 INH (10:19)
[2025-03-18] MEDS ORDERED: HOME MED LIST COMPLETE! XX SCH (10:25)
[2025-03-18] MEDS: BUDESONIDE 0.5 MG/2 ML INHALATION SUSPENSION NEB SCH (11:48)
[2025-03-18] MEDS: TIOTROPIUM BROM 2.5MCG/ACTUATION 4GM INH INH SCH (11:49)
[2025-03-18] MEDS: ADVAIR HFA 230/21 MCG INHALER INH SCH (11:49)
[2025-03-18 12:00] VITALS: BP 138/56; TEMP 97.5; O2SAT 92
[2025-03-18] MEDS: METOPROLOL TART 25 MG TABLET PO SCH (12:00)
[2025-03-18] MEDS: APIXABAN 2.5 MG TAB PO SCH (12:00)
[2025-03-18] MEDS: LEVOTHYROXINE 100 MCG TABLET (0.1 MG) PO SCH (12:00)
[2025-03-18] MEDS: SODIUM BICARBONATE 325 MG TAB PO SCH (13:56)
[2025-03-18] MEDS: POTASSIUM CHLORIDE 10MEQ SR TABLET PO ONE (13:57)
[2025-03-18] MEDS: MAG SULF 1GM/100ML (MAG RUN) 1 GM in IV 1 EA IV ONE (13:57)
[2025-03-18 16:00] VITALS: BP 107/43; TEMP 97.5; O2SAT 91
[2025-03-18] MEDS: PRAMIPEXOLE 1 MG TAB PO SCH (17:32)
[2025-03-18 20:25] VITALS: BP 126/48; TEMP 97.5; O2SAT 95
[2025-03-18] MEDS: AMITRIPTYLINE 10 MG TABLET PO SCH (20:26)
[2025-03-18] MEDS: PANTOPRAZOLE 40MG TAB PO SCH (20:26)
[2025-03-18] MEDS: ATORVASTATIN 20 MG TAB PO SCH (20:26)
[2025-03-18] MEDS: FAMOTIDINE 20 MG TAB PO SCH (20:27)
[2025-03-18] MEDS ORDERED: PILL CUTTER 1 EACH XX ONE (20:29)
[2025-03-18] MEDS ORDERED: FAMOTIDINE 20 MG TAB PO SCH (21:00)
[2025-03-19 04:15] VITALS: BP 121/49; TEMP 97.3; O2SAT 94
[2025-03-19 12:00] VITALS: BP 146/45; TEMP 97.3; O2SAT 92
[2025-03-19] MEDS: MEROPENEM 500 MG in IV 1 EA IV SCH (17:29)
[2025-03-19 20:23] VITALS: BP 148/58; O2SAT 97
[2025-03-19 20:34] VITALS: TEMP 97.2
[2025-03-19] MEDS: POLYVINYL ALCOHOL OPHTH SOLN 15ML (LIQUITEARS) OU PRN (22:52)
[2025-03-20 03:35] VITALS: BP 146/57; TEMP 97.3; O2SAT 97
[2025-03-20 05:57] LABS: PLATELET COUNT, AUTOMATED 133 10^3/uL (150-450)
[2025-03-20] MEDS ORDERED: HEPARIN 1,000 UNITS/ML 10 ML VIAL (FOR RADIOLOGY & DIALYSIS ONLY) IV PRN (06:00)
[2025-03-20] MEDS ORDERED: HEPARIN 1,000 UNITS/ML 10 ML VIAL (FOR RADIOLOGY & DIALYSIS ONLY) XX SCH (06:00)
[2025-03-20] MEDS ORDERED: SODIUM CHLORIDE 0.9% 1000 ML IV PRN (06:00)
[2025-03-20 06:28] LABS: CALCIUM LEVEL 7.2 MG/DL (8.3-10.6); CARBON DIOXIDE LEVEL 27.0 MMOL/L (20-31); CHLORIDE LEVEL 106.0 MMOL/L (98-107); CREATININE FOR GFR 3.37 MG/DL (0.70-1.30); GLOMERULAR FILTRATION RATE 17.0 (>35); POTASSIUM SERUM 3.8 MMOL/L (3.5-5.1); SODIUM LEVEL 138.0 MMOL/L (136-145)
[2025-03-20 07:41] VITALS: BP 151/61
[2025-03-20] MEDS ORDERED: CEFP200T PO (11:31)
[2025-03-20] MEDS ORDERED: FAMO20TA PO (11:31)
[2025-03-20] MEDS: HEPARIN LOCK FLUSH 100 UNITS/ML 3 ML SYRINGE IV PRN (11:47)
[2025-03-20] MEDS: SODIUM CHLORIDE 0.9% INJ 10 ML SYR IV PRN (11:48)
== END 2025-03-20 12:05 | disposition home or self-care (01) | DRG 871 ==
LOC: M ED 19:25 → M ED INP 23:32 → M MSPAV 03-18 01:51
PROVIDERS: ADMIT Student in an Organized Health Care Education/Training Program; ATTEND Internal Medicine Nephrology
DX: A41.9 Sepsis, unspecified organism (principal); N18.6 End stage renal disease; N39.0 Urinary tract infection, site not specified; I13.2 Hypertensive heart and chronic kidney disease with heart failure and with stage 5 chronic kidney disease, or end stage renal disease; I50.32 Chronic diastolic (congestive) heart failure; J96.11 Chronic respiratory failure with hypoxia; I48.92 Unspecified atrial flutter; J44.9 Chronic obstructive pulmonary disease, unspecified; G47.33 Obstructive sleep apnea (adult) (pediatric); I48.91 Unspecified atrial fibrillation; I25.10 Atherosclerotic heart disease of native coronary artery without angina pectoris; Z85.51 Personal history of malignant neoplasm of bladder; E03.9 Hypothyroidism, unspecified; H91.93 Unspecified hearing loss, bilateral; I73.9 Peripheral vascular disease, unspecified; I25.2 Old myocardial infarction; K52.9 Noninfective gastroenteritis and colitis, unspecified; B96.1 Klebsiella pneumoniae [K. pneumoniae] as the cause of diseases classified elsewhere; D64.9 Anemia, unspecified; E87.6 Hypokalemia; E78.5 Hyperlipidemia, unspecified; M10.9 Gout, unspecified; G57.93 Unspecified mononeuropathy of bilateral lower limbs; K21.9 Gastro-esophageal reflux disease without esophagitis; E83.42 Hypomagnesemia; M19.90 Unspecified osteoarthritis, unspecified site; G25.81 Restless legs syndrome; Z99.2 Dependence on renal dialysis; Z85.46 Personal history of malignant neoplasm of prostate; Z86.73 Personal history of transient ischemic attack (TIA), and cerebral infarction without residual deficits; Z87.891 Personal history of nicotine dependence; Z79.01 Long term (current) use of anticoagulants; Z79.890 Hormone replacement therapy; Z79.899 Other long term (current) drug therapy; Z88.8 Allergy status to other drugs, medicaments and biological substances; Z88.2 Allergy status to sulfonamides; Z91.018 Allergy to other foods; Z91.02 Food additives allergy status; Z95.1 Presence of aortocoronary bypass graft; Z93.6 Other artificial openings of urinary tract status; Z99.81 Dependence on supplemental oxygen

== ENCOUNTER 2025-05-15 14:01 | Emergency (ER) | payer MEDICARE, MEDICAID ==
[~2025-05-15] VITALS: Ht 188 cm; Wt 77.6 kg
[~2025-05-15 14:01] MED LIST changes: +CEFP200T PO; +LEVA1.2526 INH
[2025-05-15 15:25] LABS: BASO # 0.0 10^3/uL (0.0-0.2); BASO % 0.4 % (0.0-1.0); EOS # 0.5 10^3/uL (0.0-0.5); EOS % 6.9 % (0.0-3.0); LYMPH # 1.7 10^3/uL (1.5-5.0); LYMPH % 21.7 % (24.0-44.0); MONO # 0.6 10^3/uL (0.0-0.8); MONO % 7.2 % (2.0-8.0); NEUTROPHILS # 4.8 10^3/uL (1.5-8.5); NEUTROPHILS % 63.0 % (36.0-66.0); PLATELET COUNT, AUTOMATED 206 10^3/uL (150-450)
[2025-05-15 15:52] LABS: CK-MB VALUE MASS 2.6 NG/ML (<3.6)
[2025-05-15 15:55] LABS: ALT/SGPT 15.0 U/L (7.0-40); AST/SGOT 24.0 U/L (<34); CALCIUM LEVEL 7.2 MG/DL (8.3-10.6); CARBON DIOXIDE LEVEL 27.0 MMOL/L (20-31); CHLORIDE LEVEL 105.0 MMOL/L (98-107); CREATININE FOR GFR 2.25 MG/DL (0.70-1.30); GLOMERULAR FILTRATION RATE 27.5 (>35); POTASSIUM SERUM 4.8 MMOL/L (3.5-5.1); SODIUM LEVEL 142.0 MMOL/L (136-145)
[2025-05-15 16:09] LABS: CPK CREATINE PHOSPHOKINASE 27.0 U/L (46-171); MB/CK RELATIVE INDEX 9.62 (< OR =4)
[2025-05-15 20:04] LABS: CK-MB VALUE MASS 3.0 NG/ML (<3.6)
[2025-05-15 20:05] LABS: CPK CREATINE PHOSPHOKINASE 24.0 U/L (46-171); MB/CK RELATIVE INDEX 12.5 (< OR =4)
[2025-05-15] MEDS: LIDOCAINE 2% 5 ML JELLY UROJET TOP ONE (20:59)
[2025-05-15 21:08] LABS: KETONE, URINE AUTO RFX NEGATIVE (NEGATIVE); LEUKOCYTE ESTERASE UR AUTO RFX 2+ (NEGATIVE); NITRITE, URINE AUTO RFX NEGATIVE (NEGATIVE); RBC, URINE AUTO RFX 22 /HPF (0-3); SQUAM EPITHELIAL CELL UR AURFX 0 /HPF (0-6); WBC, URINE AUTO RFX TNTC /HPF (0-3)
[2025-05-15] MEDS: cefTRIAXone SOD 1 GM in DEXTROSE 5% (D5W) ADV/MINI-BAG 50 ML IV ONE (22:01)
[2025-05-15 22:03] VITALS: BP 171/74; TEMP 97.9; O2SAT 98
[2025-05-15] MEDS ORDERED: SODIUM CHLORIDE 0.9% INJ 10 ML SYR IV PRN (22:20)
[2025-05-15] MEDS: HEPARIN LOCK FLUSH 100 UNITS/ML 3 ML SYRINGE IV PRN (22:25)
== END 2025-05-15 22:37 | disposition home or self-care (01) ==
LOC: M ED 14:01 → EDBD 14:01 → EEVIPCON 14:01 → M ED 22:37
DX: N39.0 Urinary tract infection, site not specified (principal); R03.1 Nonspecific low blood-pressure reading; E11.9 Type 2 diabetes mellitus without complications; N18.6 End stage renal disease; I25.2 Old myocardial infarction; Z86.73 Personal history of transient ischemic attack (TIA), and cerebral infarction without residual deficits; Z88.1 Allergy status to other antibiotic agents; Z88.8 Allergy status to other drugs, medicaments and biological substances; Z79.51 Long term (current) use of inhaled steroids; Z79.01 Long term (current) use of anticoagulants; Z79.899 Other long term (current) drug therapy; Z79.810 Long term (current) use of selective estrogen receptor modulators (SERMs)
CPT/HCPCS: 36415; 51701; 71046; 80048; 80076; 81001; 82550; 82553; 83605; 83880; 84443; 84484; 85025; 87040; 87088; 87186; 87486; 87581; 87633; 87798; 93005; 93041; 96365; 96375; 99285; J0696; J1642